=== PATIENT | male | born 1930 | race Caucasian/White ===

== ENCOUNTER 2018-06-11 20:21 | Inpatient (IN) ==
--- NOTE | 2018-06-11 20:48 | XR ---
EXAM DATE: 06/11/2018 8:44 PM EST AGE/SEX: 88 years / Male INDICATIONS: Chest pain CLINICAL DATA: This is the patient's initial encounter. Patient reports that signs and symptoms have been present for 1 day and indicates a pain score of 0/10. MEDICAL/SURGICAL HISTORY: Cardiovascular disease. CABG. COMPARISON: No prior exams available for comparison. FINDINGS: Postsurgical features of prior CABG. Mild patchy parenchymal opacities in the medial right lower lung zone. Cardiac silhouette is enlarged. Remainder of exam is unchanged. CONCLUSION: 1. Mild patchy parenchymal opacities in the medial right midlung zone. Cannot exclude developing air space disease in the appropriate clinical setting. 2. Cardiomegaly. Electronically signed by: Helio Amos MD 06/11/2018 8:46 PM EST
[2018-06-11 20:53] LABS: Baso % (Auto) 0.3 % (0.0-2.0); Eos # (Auto) 0.4 th/mm3 (0.0-0.4); Eos % (Auto) 5.3 % (0.0-4.0); Hematocrit 38.8 % (39.0-51.0); Hemoglobin 13.8 gm/dL (13.0-17.0); Lymph # (Auto) 1.5 th/mm3 (1.0-4.8); Lymph % (Auto) 18.6 % (9.0-44.0); Mean Corpuscular HGB Conc 35.7 % (32.0-36.0); Mean Corpuscular Hemoglobin 33.4 pg (27.0-34.0); Mean Corpuscular Volume 93.5 fL (80.0-100.0); Mean Platelet Volume 9.6 fL (7.0-11.0); Mono # (Auto) 0.6 th/mm3 (0.0-0.9); Mono % (Auto) 7.9 % (0.0-8.0); Neut # (Auto) 5.3 th/mm3 (1.8-7.7); Neut % (Auto) 67.9 % (16.0-70.0); Platelet Count 164 th/mm3 (150-450); Red Blood Count 4.15 mil/mm3 (4.50-5.90); Red Cell Distribution Width 13.3 % (11.6-17.2); White Blood Count 7.8 th/mm3 (4.0-11.0)
--- NOTE | 2018-06-11 21:17 | ED ---
HPI General Chief Complaint: Chest Pain Stated Complaint: Medical Time Seen by Provider: 06/11/18 20:33 Source: patient Mode of arrival: ambulatory Limitations: no limitations History of Present Illness HPI narrative: 88-year-old male came to the emergency room with history of on and off chest pain for past 3-4 weeks with exertion. Patient has also been having pedal edema progressively worsening for past few months. 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 He follows up with Dr. Montes De Oca. Patient had a Lexiscan done in July 2017. He is not sure about the result. He has been taking his medications like he is supposed to. Currently he is chest pain-free. He describes his pain more like a discomfort that is over his entire chest and radiates down both arms. No history of shortness of breath, cough or fever. Patient was hypertensive upon arrival. He agrees to being quite anxious when he arrived. He is here with his who is giving additional history and confirming. Related Data Home Medications Medication Instructions Recorded Confirmed cholecalciferol (vitamin D3) 2,000 unit PO DAILY 06/11/18 06/11/18 [Vitamin D3] Previous Rx's Medication Instructions Recorded aspirin [Aspir-81] 81 mg PO DAILY #30 tab 06/15/18 atorvastatin 40 mg PO DAILY #30 tab 06/15/18 clopidogrel [Plavix] 75 mg PO DAILY #30 tab 06/15/18 metoprolol tartrate 50 mg PO BID #60 tab 06/15/18 nifedipine 60 mg PO DAILY #30 tab 06/15/18 Allergies Allergy/AdvReac Type Severity Reaction Status Date / Time No Known Allergies Allergy Verified 06/11/18 20:23 Review of Systems ROS: all other systems reviewed are negative [facility] Medical History Medical History Chronic kidney disease (CKD) (Acute) Essential hypertension (Acute) Localized edema (Acute) Seborrheic keratosis (Acute) Social History Social History Substance History: No History of Abuse Second Hand Smoke Exposure: No Smoking Status: Never smoker How Often Do You Have a Drink Containing Alcohol: Never Recent Travel in [facility] within the Last 8 Weeks: No Recent Out of Country Travel within the Last 8 Weeks: No Immunization History Tetanus Immunization: <5 Years Exam Narrative Exam Narrative: GENERAL: Awake, alert, elderly, no obvious distress SKIN: Focused skin assessment warm/dry. HEAD: Atraumatic. Normocephalic. EYES: Pupils equal and round. No scleral icterus. No injection or drainage. ENT: No nasal bleeding or discharge. Mucous membranes pink and moist. NECK: Trachea midline. No JVD. CARDIOVASCULAR: Regular rate and rhythm. No murmur appreciated. RESPIRATORY: No accessory muscle use. Clear to auscultation. Breath sounds equal bilaterally. GASTROINTESTINAL: Abdomen soft, non-tender, nondistended. Hepatic and splenic margins not palpable. MUSCULOSKELETAL: No obvious deformities. No clubbing. No cyanosis. Pedal edema left worse than right NEUROLOGICAL: Awake and alert. No obvious cranial nerve deficits. Motor grossly within normal limits. Normal speech. PSYCHIATRIC: Appropriate mood and affect; insight and judgment normal. Course Initial Documented Vital Signs Temperature 98.8 F 06/11/18 20:23 Pulse Rate 63 06/11/18 20:23 Respiratory Rate 16 06/11/18 20:23 Blood Pressure 203/84 H 06/11/18 20:23 Pulse Oximetry 96 06/11/18 20:23 Last Documented Vital Signs Temperature 97.6 F 06/15/18 11:18 Pulse Rate 64 06/15/18 11:18 Respiratory Rate 17 06/15/18 11:18 Blood Pressure 161/74 H 06/15/18 11:18 Pulse Oximetry 98 06/15/18 11:18 Critical Care Time Critical Care Time: Yes Total Critical Care Time: 30 Attestation: Aggregate critical care time was 30 minutes. Time to perform other separately billable procedures was not included in the critical care time. My time did not include minutes spent treating any other patients simultaneously or on activities that did not directly contribute to the patient's treatment. The services I provided to this patient were to treat and/or prevent clinically significant deterioration that could result in: ACS, heparin drip I provided critical care services requiring my management, as noted below: Chart data review, documentation time, medication orders and management, vital sign assessments/reviewing monitor data, ordering and reviewing lab tests, ordering and interpreting/reviewing x-rays and diagnostic studies, care of the patient and discussion of the patient with the admitting physicians. Medical Decision Making MDM Narrative Medical decision making narrative: 10:49 PM chest x-ray suggestive of bilateral lower lobe densities which could be congestive heart failure. Patient was given 40 mg of IV Lasix. Blood test results are back and patient has renal insufficiency. Rest of the blood test results are within acceptable limits. Patient is admitted to the hospitalist for a cardiology consultation and probable catheterization for angina based on the history. I discussed the test results and the plan with the patient and his and they are acceptable to the admission. I will start him on a heparin drip without a bolus for ACS. Medical Screen Exam Complete: Yes Emergency Medical Condition: Yes Lab Data Result diagrams: 06/15/18 04:58 06/15/18 04:58 Lab Results 06/11/18 06/11/18 06/11/18 Range/Units 20:35 20:35 20:35 WBC 7.8 (4.0-11.0) th/mm3 RBC 4.15 L (4.50-5.90) mil/mm3 Hgb 13.8 (13.0-17.0) gm/dL Hct 38.8 L (39.0-51.0) % MCV 93.5 (80.0-100.0) fL MCH 33.4 (27.0-34.0) pg MCHC 35.7 (32.0-36.0) % RDW 13.3 (11.6-17.2) % Plt Count 164 (150-450) th/mm3 MPV 9.6 (7.0-11.0) fL Prelim Diff (Auto) Neut % (Auto) 67.9 (16.0-70.0) % Lymph % (Auto) 18.6 (9.0-44.0) % [place] % (Auto) 7.9 (0.0-8.0) % Eos % (Auto) 5.3 H (0.0-4.0) % Baso % (Auto) 0.3 (0.0-2.0) % Neut # (Auto) 5.3 (1.8-7.7) th/mm3 Lymph # (Auto) 1.5 (1.0-4.8) th/mm3 [place] # (Auto) 0.6 (0.0-0.9) th/mm3 Eos # (Auto) 0.4 (0.0-0.4) th/mm3 Baso # (Auto) 0.0 (0.0-0.2) th/mm3 WBC Differential . Diff Scan Differential Comment Auto diff final Platelet Estimate (Normal) Platelet Morphology (Normal) PT (9.8-11.6) sec INR Ratio APTT (23.4-31.7) sec Sodium 141 (136-145) meq/L Potassium 4.3 (3.5-5.1) meq/L Chloride 110 H (98-107) meq/L Carbon Dioxide 24.8 (21.0-32.0) meq/L Anion Gap 6 (5-15) meq/L BUN 34 H (7-18) mg/dL Creatinine 2.03 H (0.60-1.30) mg/dL Estimated GFR 31 L (>89) mL/min Random Glucose 133 H (74-106) mg/dL Calcium 9.4 (8.5-10.1) mg/dL Total Bilirubin 0.5 (0.2-1.0) mg/dL AST 29 (15-37) U/L ALT 20 (12-78) U/L Alkaline Phosphatase 71 (45-117) U/L Troponin I 0.03 (0.02-0.05) ng/mL B-Natriuretic Peptide 247 H (0-100) pg/mL Total Protein 7.8 (6.4-8.2) g/dL Albumin 3.9 (3.4-5.0) g/dL Urine Color (Yellw/Straw) Urine Clarity (Clear) Urine pH (5.0-8.5) Ur Specific [place] (1.002-1.035) Urine Protein (Neg-Trace) mg/dL Urine Glucose (UA) (Negative) mg/dL Urine Ketones (Negative) mg/dL Urine Occult Blood (Negative) Urine Nitrate (Negative) Urine Bilirubin (Negative) Urine Urobilinogen (Less than 2) mg/dL Ur Leukocyte Esterase (Negative) Urine RBC (0-3) /hpf Urine WBC (0-5) /hpf Urine Mucus (Occasional) /lpf Ur Microscopic Review 06/11/18 06/11/18 06/12/18 Range/Units 22:54 23:55 03:49 WBC 5.9 (4.0-11.0) th/mm3 RBC 3.93 L (4.50-5.90) mil/mm3 Hgb 13.2 (13.0-17.0) gm/dL Hct 36.5 L (39.0-51.0) % MCV 92.8 (80.0-100.0) fL MCH 33.6 (27.0-34.0) pg MCHC 36.3 H (32.0-36.0) % RDW 12.9 (11.6-17.2) % Plt Count 147 L (150-450) th/mm3 MPV 10.3 (7.0-11.0) fL Prelim Diff (Auto) Slide review pending Neut % (Auto) 62.6 (16.0-70.0) % Lymph % (Auto) 21.4 (9.0-44.0) % [place] % (Auto) 9.2 H (0.0-8.0) % Eos % (Auto) 6.3 H (0.0-4.0) % Baso % (Auto) 0.5 (0.0-2.0) % Neut # (Auto) 3.7 (1.8-7.7) th/mm3 Lymph # (Auto) 1.3 (1.0-4.8) th/mm3 [place] # (Auto) 0.5 (0.0-0.9) th/mm3 Eos # (Auto) 0.4 (0.0-0.4) th/mm3 Baso # (Auto) 0.0 (0.0-0.2) th/mm3 WBC Differential . Diff Scan Auto diff confirmed Differential Comment . Platelet Estimate Low L (Normal) Platelet Morphology Normal (Normal) PT 10.7 (9.8-11.6) sec INR 1.1 Ratio APTT 23.5 (23.4-31.7) sec Sodium (136-145) meq/L Potassium (3.5-5.1) meq/L Chloride (98-107) meq/L Carbon Dioxide (21.0-32.0) meq/L Anion Gap (5-15) meq/L BUN (7-18) mg/dL Creatinine (0.60-1.30) mg/dL Estimated GFR (>89) mL/min Random Glucose (74-106) mg/dL Calcium (8.5-10.1) mg/dL Total Bilirubin (0.2-1.0) mg/dL AST (15-37) U/L ALT (12-78) U/L Alkaline Phosphatase (45-117) U/L Troponin I 0.60 H (0.02-0.05) ng/mL B-Natriuretic Peptide (0-100) pg/mL Total Protein (6.4-8.2) g/dL Albumin (3.4-5.0) g/dL Urine Color (Yellw/Straw) Urine Clarity (Clear) Urine pH (5.0-8.5) Ur Specific [place] (1.002-1.035) Urine Protein (Neg-Trace) mg/dL Urine Glucose (UA) (Negative) mg/dL Urine Ketones (Negative) mg/dL Urine Occult Blood (Negative) Urine Nitrate (Negative) Urine Bilirubin (Negative) Urine Urobilinogen (Less than 2) mg/dL Ur Leukocyte Esterase (Negative) Urine RBC (0-3) /hpf Urine WBC (0-5) /hpf Urine Mucus (Occasional) /lpf Ur Microscopic Review 06/12/18 06/12/18 06/12/18 Range/Units 03:49 03:49 18:45 WBC (4.0-11.0) th/mm3 RBC (4.50-5.90) mil/mm3 Hgb (13.0-17.0) gm/dL Hct (39.0-51.0) % MCV (80.0-100.0) fL MCH (27.0-34.0) pg MCHC (32.0-36.0) % RDW (11.6-17.2) % Plt Count (150-450) th/mm3 MPV (7.0-11.0) fL Prelim Diff (Auto) Neut % (Auto) (16.0-70.0) % Lymph % (Auto) (9.0-44.0) % [place] % (Auto) (0.0-8.0) % Eos % (Auto) (0.0-4.0) % Baso % (Auto) (0.0-2.0) % Neut # (Auto) (1.8-7.7) th/mm3 Lymph # (Auto) (1.0-4.8) th/mm3 [place] # (Auto) (0.0-0.9) th/mm3 Eos # (Auto) (0.0-0.4) th/mm3 Baso # (Auto) (0.0-0.2) th/mm3 WBC Differential Diff Scan Differential Comment Platelet Estimate (Normal) Platelet Morphology (Normal) PT (9.8-11.6) sec INR Ratio APTT 26.4 (23.4-31.7) sec Sodium 144 (136-145) meq/L Potassium 3.4 L D (3.5-5.1) meq/L Chloride 108 H (98-107) meq/L Carbon Dioxide 29.6 (21.0-32.0) meq/L Anion Gap 6 (5-15) meq/L BUN 35 H (7-18) mg/dL Creatinine 1.97 H (0.60-1.30) mg/dL Estimated GFR 32 L (>89) mL/min Random Glucose 98 (74-106) mg/dL Calcium 9.3 (8.5-10.1) mg/dL Total Bilirubin 0.4 (0.2-1.0) mg/dL AST 24 (15-37) U/L ALT 18 (12-78) U/L Alkaline Phosphatase 64 (45-117) U/L Troponin I 1.07 H* (0.02-0.05) ng/mL B-Natriuretic Peptide (0-100) pg/mL Total Protein 7.2 D (6.4-8.2) g/dL Albumin 3.6 (3.4-5.0) g/dL Urine Color Straw (Yellw/Straw) Urine Clarity Clear (Clear) Urine pH 7.0 (5.0-8.5) Ur Specific [place] 1.016 (1.002-1.035) Urine Protein Negative (Neg-Trace) mg/dL Urine Glucose (UA) Negative (Negative) mg/dL Urine Ketones Negative (Negative) mg/dL Urine Occult Blood Small H (Negative) Urine Nitrate Negative (Negative) Urine Bilirubin Negative (Negative) Urine Urobilinogen Less than 2 (Less than 2) mg/dL Ur Leukocyte Esterase Negative (Negative) Urine RBC Less than 1 (0-3) /hpf Urine WBC Less than 1 (0-5) /hpf Urine Mucus Few H (Occasional) /lpf Ur Microscopic Review Not Reportable 06/12/18 06/13/18 06/13/18 Range/Units 21:45 03:57 03:57 WBC 6.9 (4.0-11.0) th/mm3 RBC 3.98 L (4.50-5.90) mil/mm3 Hgb 13.3 (13.0-17.0) gm/dL Hct 37.8 L (39.0-51.0) % MCV 94.9 (80.0-100.0) fL MCH 33.4 (27.0-34.0) pg MCHC 35.2 (32.0-36.0) % RDW 13.0 (11.6-17.2) % Plt Count 139 L (150-450) th/mm3 MPV 9.9 (7.0-11.0) fL Prelim Diff (Auto) Neut % (Auto) 57.9 (16.0-70.0) % Lymph % (Auto) 26.8 (9.0-44.0) % [place] % (Auto) 8.8 H (0.0-8.0) % Eos % (Auto) 6.1 H (0.0-4.0) % Baso % (Auto) 0.4 (0.0-2.0) % Neut # (Auto) 4.0 (1.8-7.7) th/mm3 Lymph # (Auto) 1.8 (1.0-4.8) th/mm3 [place] # (Auto) 0.6 (0.0-0.9) th/mm3 Eos # (Auto) 0.4 (0.0-0.4) th/mm3 Baso # (Auto) 0.0 (0.0-0.2) th/mm3 WBC Differential . Diff Scan Differential Comment Auto diff final Platelet Estimate (Normal) Platelet Morphology (Normal) PT 11.4 (9.8-11.6) sec INR 1.1 Ratio APTT 27.1 (23.4-31.7) sec Sodium 142 (136-145) meq/L Potassium 3.4 L (3.5-5.1) meq/L Chloride 107 (98-107) meq/L Carbon Dioxide 26.4 (21.0-32.0) meq/L Anion Gap 9 (5-15) meq/L BUN 34 H (7-18) mg/dL Creatinine 2.08 H (0.60-1.30) mg/dL Estimated GFR 30 L (>89) mL/min Random Glucose 90 (74-106) mg/dL Calcium 8.5 D (8.5-10.1) mg/dL Total Bilirubin (0.2-1.0) mg/dL AST (15-37) U/L ALT (12-78) U/L Alkaline Phosphatase (45-117) U/L Troponin I (0.02-0.05) ng/mL B-Natriuretic Peptide (0-100) pg/mL Total Protein (6.4-8.2) g/dL Albumin (3.4-5.0) g/dL Urine Color (Yellw/Straw) Urine Clarity (Clear) Urine pH (5.0-8.5) Ur Specific [place] (1.002-1.035) Urine Protein (Neg-Trace) mg/dL Urine Glucose (UA) (Negative) mg/dL Urine Ketones (Negative) mg/dL Urine Occult Blood (Negative) Urine Nitrate (Negative) Urine Bilirubin (Negative) Urine Urobilinogen (Less than 2) mg/dL Ur Leukocyte Esterase (Negative) Urine RBC (0-3) /hpf Urine WBC (0-5) /hpf Urine Mucus (Occasional) /lpf Ur Microscopic Review 06/13/18 06/13/18 06/14/18 Range/Units 03:57 09:40 01:39 WBC 6.2 (4.0-11.0) th/mm3 RBC 3.95 L (4.50-5.90) mil/mm3 Hgb 13.0 (13.0-17.0) gm/dL Hct 37.3 L (39.0-51.0) % MCV 94.3 (80.0-100.0) fL MCH 32.9 (27.0-34.0) pg MCHC 34.9 (32.0-36.0) % RDW 13.2 (11.6-17.2) % Plt Count 144 L (150-450) th/mm3 MPV 9.9 (7.0-11.0) fL Prelim Diff (Auto) Neut % (Auto) (16.0-70.0) % Lymph % (Auto) (9.0-44.0) % [place] % (Auto) (0.0-8.0) % Eos % (Auto) (0.0-4.0) % Baso % (Auto) (0.0-2.0) % Neut # (Auto) (1.8-7.7) th/mm3 Lymph # (Auto) (1.0-4.8) th/mm3 [place] # (Auto) (0.0-0.9) th/mm3 Eos # (Auto) (0.0-0.4) th/mm3 Baso # (Auto) (0.0-0.2) th/mm3 WBC Differential Diff Scan Differential Comment Platelet Estimate (Normal) Platelet Morphology (Normal) PT (9.8-11.6) sec INR Ratio APTT 44.3 H D 29.0 D (23.4-31.7) sec Sodium (136-145) meq/L Potassium (3.5-5.1) meq/L Chloride (98-107) meq/L Carbon Dioxide (21.0-32.0) meq/L Anion Gap (5-15) meq/L BUN (7-18) mg/dL Creatinine (0.60-1.30) mg/dL Estimated GFR (>89) mL/min Random Glucose (74-106) mg/dL Calcium (8.5-10.1) mg/dL Total Bilirubin (0.2-1.0) mg/dL AST (15-37) U/L ALT (12-78) U/L Alkaline Phosphatase (45-117) U/L Troponin I (0.02-0.05) ng/mL B-Natriuretic Peptide (0-100) pg/mL Total Protein (6.4-8.2) g/dL Albumin (3.4-5.0) g/dL Urine Color (Yellw/Straw) Urine Clarity (Clear) Urine pH (5.0-8.5) Ur Specific [place] (1.002-1.035) Urine Protein (Neg-Trace) mg/dL Urine Glucose (UA) (Negative) mg/dL Urine Ketones (Negative) mg/dL Urine Occult Blood (Negative) Urine Nitrate (Negative) Urine Bilirubin (Negative) Urine Urobilinogen (Less than 2) mg/dL Ur Leukocyte Esterase (Negative) Urine RBC (0-3) /hpf Urine WBC (0-5) /hpf Urine Mucus (Occasional) /lpf Ur Microscopic Review 06/14/18 06/14/18 06/14/18 Range/Units 01:39 01:39 08:31 WBC (4.0-11.0) th/mm3 RBC (4.50-5.90) mil/mm3 Hgb (13.0-17.0) gm/dL Hct (39.0-51.0) % MCV (80.0-100.0) fL MCH (27.0-34.0) pg MCHC (32.0-36.0) % RDW (11.6-17.2) % Plt Count (150-450) th/mm3 MPV (7.0-11.0) fL Prelim Diff (Auto) Neut % (Auto) (16.0-70.0) % Lymph % (Auto) (9.0-44.0) % [place] % (Auto) (0.0-8.0) % Eos % (Auto) (0.0-4.0) % Baso % (Auto) (0.0-2.0) % Neut # (Auto) (1.8-7.7) th/mm3 Lymph # (Auto) (1.0-4.8) th/mm3 [place] # (Auto) (0.0-0.9) th/mm3 Eos # (Auto) (0.0-0.4) th/mm3 Baso # (Auto) (0.0-0.2) th/mm3 WBC Differential Diff Scan Differential Comment Platelet Estimate (Normal) Platelet Morphology (Normal) PT (9.8-11.6) sec INR Ratio APTT 51.7 H D 58.9 H (23.4-31.7) sec Sodium 142 (136-145) meq/L Potassium 3.5 (3.5-5.1) meq/L Chloride 108 H (98-107) meq/L Carbon Dioxide 26.6 (21.0-32.0) meq/L Anion Gap 7 (5-15) meq/L BUN 36 H (7-18) mg/dL Creatinine 1.99 H (0.60-1.30) mg/dL Estimated GFR 32 L (>89) mL/min Random Glucose 104 (74-106) mg/dL Calcium 8.2 L (8.5-10.1) mg/dL Total Bilirubin (0.2-1.0) mg/dL AST (15-37) U/L ALT (12-78) U/L Alkaline Phosphatase (45-117) U/L Troponin I (0.02-0.05) ng/mL B-Natriuretic Peptide (0-100) pg/mL Total Protein (6.4-8.2) g/dL Albumin (3.4-5.0) g/dL Urine Color ([place]ell[place]/Straw) Urine Clarity (Clear) Urine pH (5.0-8.5) Ur Specific [place] (1.002-1.035) Urine Protein (Neg-Trace) mg/dL Urine Glucose (UA) (Negative) mg/dL Urine Ketones (Negative) mg/dL Urine Occult Blood (Negative) Urine Nitrate (Negative) Urine Bilirubin (Negative) Urine Urobilinogen (Less than 2) mg/dL Ur Leukocyte Esterase (Negative) Urine RBC (0-3) /hpf Urine WBC (0-5) /hpf Urine Mucus (Occasional) /lpf Ur Microscopic Review 06/15/18 06/15/18 Range/Units 04:58 04:58 WBC 5.6 (4.0-11.0) th/mm3 RBC 3.94 L (4.50-5.90) mil/mm3 Hgb 12.9 L (13.0-17.0) gm/dL Hct 37.4 L (39.0-51.0) % MCV 95.0 (80.0-100.0) fL MCH 32.8 (27.0-34.0) pg MCHC 34.6 (32.0-36.0) % RDW 13.0 (11.6-17.2) % Plt Count 142 L (150-450) th/mm3 MPV 9.4 (7.0-11.0) fL Prelim Diff (Auto) Neut % (Auto) (16.0-70.0) % Lymph % (Auto) (9.0-44.0) % [place] % (Auto) (0.0-8.0) % Eos % (Auto) (0.0-4.0) % Baso % (Auto) (0.0-2.0) % Neut # (Auto) (1.8-7.7) th/mm3 Lymph # (Auto) (1.0-4.8) th/mm3 [place] # (Auto) (0.0-0.9) th/mm3 Eos # (Auto) (0.0-0.4) th/mm3 Baso # (Auto) (0.0-0.2) th/mm3 WBC Differential Diff Scan Differential Comment Platelet Estimate (Normal) Platelet Morphology (Normal) PT (9.8-11.6) sec INR Ratio APTT (23.4-31.7) sec Sodium 144 (136-145) meq/L Potassium 3.6 (3.5-5.1) meq/L Chloride 111 H (98-107) meq/L Carbon Dioxide 22.5 (21.0-32.0) meq/L Anion Gap 11 (5-15) meq/L BUN 32 H (7-18) mg/dL Creatinine 1.90 H (0.60-1.30) mg/dL Estimated GFR 34 L (>89) mL/min Random Glucose 88 (74-106) mg/dL Calcium 8.3 L (8.5-10.1) mg/dL Total Bilirubin (0.2-1.0) mg/dL AST (15-37) U/L ALT (12-78) U/L Alkaline Phosphatase (45-117) U/L Troponin I (0.02-0.05) ng/mL B-Natriuretic Peptide (0-100) pg/mL Total Protein (6.4-8.2) g/dL Albumin (3.4-5.0) g/dL Urine Color ([place]/Straw) Urine Clarity (Clear) Urine pH (5.0-8.5) Ur Specific [place] (1.002-1.035) Urine Protein (Neg-Trace) mg/dL Urine Glucose (UA) (Negative) mg/dL Urine Ketones (Negative) mg/dL Urine Occult Blood (Negative) Urine Nitrate (Negative) Urine Bilirubin (Negative) Urine Urobilinogen (Less than 2) mg/dL Ur Leukocyte Esterase (Negative) Urine RBC (0-3) /hpf Urine WBC (0-5) /hpf Urine Mucus (Occasional) /lpf Ur Microscopic Review Imaging Data Radiologist's impression: Chest X-Ray 06/11/18 20:33 CONCLUSION: 1. Mild patchy parenchymal opacities in the medial right midlung zone. Cannot exclude developing airspace disease in the appropriate clinical setting. 2. Cardiomegaly. Abdomen/Bladder Ultrasound 06/12/18 00:00 CONCLUSION: 1. Bilateral renal cysts. 2. Irregular wall thickening within the urinary bladder. Cystitis and neoplastic process should be excluded. ECG Data Attestation: I personally reviewed and interpreted this ECG as follows: Interpretation: Twelve-lead EKG was reviewed by me. Normal sinus him, PACs, left axis deviation, nonspecific ST-T wave changes. Heart rate of 60 bpm. Discharge Plan Discharge Disposition Patient Disposition: 30 Still Patient Discharge Condition Condition: Good Discharge Order Discharge Orders: Discharge Order (Routine); Ordered 06/15/18 Ordered By: Jamal Mosquera ED Use Only Admit Order (Routine); Ordered 06/11/18 Ordered By: Yolanda Fuchs Discharge Details Anticipated Discharge Date: 06/15/18 Discharge Comment: dc to home today Physicians Team ED Provider: Yolanda Fuchs Primary Care Provider: Edis Dial Attending Provider: Jamal Mosquera Other Providers: Rad Persaud Abdul Q Status ED Status: Left Department Discharge Information Discharge Date/Time: 06/12/18 00:57
[2018-06-11 21:34] LABS: Alanine Aminotransferase 20 U/L (12-78); Albumin 3.9 g/dL (3.4-5.0); Anion Gap 6 meq/L (5-15); Aspartate Aminotransferase 29 U/L (15-37); Blood Urea Nitrogen 34 mg/dL (7-18); Calcium 9.4 mg/dL (8.5-10.1); Carbon Dioxide 24.8 meq/L (21.0-32.0); Chloride 110 meq/L (98-107); Glomerular Filtration Rate 31 mL/min (>89); Glucose,Random 133 mg/dL (74-106); Potassium 4.3 meq/L (3.5-5.1); Sodium 141 meq/L (136-145)
[2018-06-11 21:37] LABS: Alkaline Phosphatase 71 U/L (45-117); Total Protein 7.8 g/dL (6.4-8.2); Troponin I 0.03 ng/mL (0.02-0.05)
[2018-06-11] MEDS ORDERED: Acetaminophen 325 MG Tablet PO PRN (22:26)
[2018-06-11] MEDS ORDERED: Bisacodyl 10 MG Supp RECTAL PRN (22:26)
[2018-06-11] MEDS ORDERED: Morphine Inj 4 MG/ML Vial IV.PUSH PRN (22:28)
--- NOTE | 2018-06-11 22:36 | P.HPIM ---
History of Present Illness Primary Care Physician: Edis Dial DO History of Present Illness: This is an 88-year-old male with a PMH of CAD s/p CABG 25yrs ago, HTN and CKD who presented to the ER for c/o chest pain and bilateral lower extremity edema x3 wks. Notes chest pain is substernal, moderate, 6/10, worse w/ exertion/ ambulation, symptoms have gotten progressively worse over the last 1wk. Now w/ bilateral lower extremity edema. Follows w/ Dr. Montes De Oca as outpatient, no recent changes to medications. Also notes h/o CKD, baseline creatinine unknown but reports being told it is elevated, has upcoming appt w/ Archery Instructor on . On arrival, BP 189/78, HR 59, O2 sat 98% on RA, Afebrile. CBC unremarkable. INR 1.1. Creatinine 2.03, no previous labs for comparison. BNP 247. Troponin 0 0.03 per CXR with patchy parenchymal opacities medial right midlung zone, possible airspace disease, cardiomegaly. S/p Lasix in ER. Currently chest pain free. Dr. Persaud consulted, plan for cath in am. Currently on Heparin gtt. - Diagnosis (1) ACS (acute coronary syndrome) (2) Renal insufficiency (3) Lower extremity edema Review of Systems PAST FAMILY HISTORY: Reviewed. Strong family history of CAD. All other systems reviewed negative except as stated in HPI [facility] - History History Provided By: Patient, Family Member - Medical History Medical History: Medical History (Last Reviewed 06/11/18 @ 22:48 by Yolanda Fuchs MD) Chronic kidney disease (CKD) Essential hypertension Localized edema Seborrheic keratosis - Tobacco History Second Hand Smoke Exposure: No Tobacco Use In Past 30 Days: No Smoking Status: Never smoker - Alcohol History How Often Do You Have a Drink Containing Alcohol: Never - Substance Use History Substance History: No History of Abuse - Travel History Recent Travel in the [place] Within the Last 8 Weeks: No Recent Travel Out of the Country Within the Last 8 Weeks: No - Immunization History Tetanus Immunization: <5 Years Medications and Allergies Active Medications: Active Medications Acetaminophen (Tylenol) 650 mg PO Q4H PRN PRN Reason: Temp > 100.4 Al Hydroxide/Mg Hydroxide (Milk Of Magnesia Liq) 30 ml PO Q12H PRN PRN Reason: Mild Constipation Aspirin (Ecotrin) 81 mg PO DAILY [facility] Atorvastatin Calcium (Lipitor) 10 mg PO DAILY [facility] Bisacodyl (Dulcolax Supp) 10 mg RECTAL DAILY PRN PRN Reason: SEVERE CONSITIPATION Lactulose (Lactulose Liq) 30 ml PO DAILY PRN PRN Reason: SEVERE CONSITIPATION Metoprolol Tartrate (Lopressor) 50 mg PO BID [facility] Morphine Sulfate (Morphine Inj) 2 mg IV.PUSH Q4H PRN PRN Reason: PAIN 6-10 Nitroglycerin (Nitro-Bid 2% Oint) 0.5 inch TOPICAL Q6HR PRN PRN Reason: CHEST PAIN Ondansetron HCl (Zofran Inj) 4 mg IV.PUSH Q6H PRN PRN Reason: NAUSEA OR VOMITING Senna/Docusate Sodium (Cornelia-Colace) 1 tab PO BID [facility] Sennosides (Senokot) 17.2 mg PO Q12H PRN PRN Reason: Moderate Constipation Sodium Chloride (Ns Flush) 2 ml IV.FLUSH UNSCH PRN PRN Reason: FLUSH AFTER USING IV ACCESS Sodium Chloride (Ns Flush) 2 ml IV.FLUSH BID [facility] Sodium Chloride (Ns Flush) 2 ml IV.FLUSH PRN PRN PRN Reason: FLUSH AFTER USING IV ACCESS Allergies Allergy/AdvReac Type Severity Reaction Status Date / Time No Known Allergies Allergy Verified 06/11/18 20:23 Home Medications Medication Instructions Recorded Confirmed Type amlodipine 5 mg PO DAILY 06/11/18 06/11/18 History aspirin [Aspir-81] 81 mg PO DAILY 06/11/18 06/11/18 History atorvastatin 10 mg PO DAILY 06/11/18 06/11/18 History cholecalciferol (vitamin D3) 2,000 unit PO DAILY 06/11/18 06/11/18 History [Vitamin D3] losartan 100 mg PO DAILY 06/11/18 06/11/18 History metoprolol tartrate 50 mg PO BID 06/11/18 06/11/18 History Exam Vital signs: Vital Signs 06/11/18 20:23 06/11/18 20:52 06/11/18 20:57 Temperature 98.8 F Pulse Rate 63 52 L Respiratory Rate 16 Blood Pressure 203/84 H 189/78 H Pulse Oximetry 96 98 06/11/18 22:30 06/11/18 22:31 Temperature Pulse Rate 59 L 57 L Respiratory Rate 18 Blood Pressure 160/70 H Pulse Oximetry 97 Intake & Output 06/11/18 06/11/18 06/12/18 06:59 18:59 06:59 Output Total 300 / 300 Balance -300 / -300 Weight 55.792 kg Output: Urine 300 / 300 Narrative: PE: GENERAL: Extremely pleasant elderly male in no acute distress. at bedside. SKIN: Focused skin assessment warm and dry. HEENT: PERRLA, EOMI. No scleral icterus or conjunctival pallor. No lid lag or facial droop. CARDIOVASCULAR: Regular rate and rhythm. No obvious murmurs to auscultation. No chest tenderness to palpation. RESPIRATORY: No obvious rhonchi or wheezing. Clear to auscultation. Breath sounds equal bilaterally. GASTROINTESTINAL: Abdomen soft, non-tender, nondistended. BS normal. MUSCULOSKELETAL: Extremities without clubbing, cyanosis, 2+ edema bilaterally. No obvious deformities. NEUROLOGICAL: Awake, alert and oriented x4. No focal neurologic deficits. Moving both upper and lower extremities spontaneously. PSYCHIATRIC: Appropriate mood and affect. Insight and judgment normal. Results - Labs CBC & Chem 7: 06/11/18 20:35 06/11/18 20:35 Labs: Short CBC 06/11/18 Range/Units 20:35 WBC 7.8 (4.0-11.0) th/mm3 Hgb 13.8 (13.0-17.0) gm/dL Hct 38.8 L (39.0-51.0) % Plt Count 164 (150-450) th/mm3 [facility] 06/11/18 20:35 Sodium 141 Potassium 4.3 Chloride 110 H Carbon Dioxide 24.8 BUN 34 H Creatinine 2.03 H Calcium 9.4 Cardiac Enzymes 06/11/18 Range/Units 20:35 Troponin I 0.03 (0.02-0.05) ng/mL Liver Function 06/11/18 Range/Units 20:35 Total Bilirubin 0.5 (0.2-1.0) mg/dL AST 29 (15-37) U/L ALT 20 (12-78) U/L Alkaline Phosphatase 71 (45-117) U/L Albumin 3.9 (3.4-5.0) g/dL - Imaging Impressions Chest X-Ray 06/11/18 20:33 CONCLUSION: 1. Mild patchy parenchymal opacities in the medial right midlung zone. Cannot exclude developing airspace disease in the appropriate clinical setting. 2. Cardiomegaly. Caprini VTE Risk Assessment Caprini VTE Risk Assessment: Moderate/High Risk (score >= 2) Caprini Risk Assessment Model: Point Value = 1 Point Value = 2 Point Value = 3 Point Value = 5 Age 41-60 Minor surgery BMI > 25 kg/m2 Swollen legs Varicose veins or History of unexplained or recurrent spontaneous Oral contraceptives or hormone replacement Sepsis (< 1 month) Serious lung disease, including pneumonia (< 1 month) Abnormal pulmonary function Acute myocardial infarction Congestive heart failure (< 1 month) History of inflammatory bowel disease Medical patient at bed rest Age 61-74 Arthroscopic surgery Major open surgery (> 45 min) Laparoscopic surgery (> 45 min) Malignancy Confined to bed (> 72 hours) Immobilizing plaster cast Central venous access Age >= 75 History of VTE Family history of VTE Factor V Leiden Prothrombin [id number] Lupus anticoagulant Anticardiolipin antibodies Elevated serum homocysteine Heparin-induced thrombocytopenia Other congenital or acquired thrombophilia Stroke (< 1 month) Elective arthroplasty Hip, pelvis, or leg fracture Acute spinal cord injury (< 1 month) Prophylaxis Regimen: Total Risk Factor Score Risk Level Prophylaxis Regimen 0-1 Low Early ambulation 2 Moderate Order ONE of the following: *Sequential Compression Device (SCD) *Heparin 5000 units SQ BID 3-4 Higher Order ONE of the following medications: *Heparin 5000 units SQ TID *Enoxaparin/Lovenox 40 mg SQ daily (WT < 150 kg, CrCl > 30 mL/min) *Enoxaparin/Lovenox 30 mg SQ daily (WT < 150 kg, CrCl > 10-29 mL/min) *Enoxaparin/Lovenox 30 mg SQ BID (WT < 150 kg, CrCl > 30 mL/min) AND/OR *Sequential Compression Device (SCD) 5 or more Highest Order ONE of the following medications: *Heparin 5000 units SQ TID (Preferred with Epidurals) *Enoxaparin/Lovenox 40 mg SQ daily (WT < 150 kg, CrCl > 30 mL/min) *Enoxaparin/Lovenox 30 mg SQ daily (WT < 150 kg, CrCl > 10-29 mL/min) *Enoxaparin/Lovenox 30 mg SQ BID (WT < 150 kg, CrCl > 30 mL/min) AND *Sequential Compression Device (SCD) Assessment and Plan - Assessment (1) ACS (acute coronary syndrome) Code(s): I24.9 - Acute ischemic heart disease, unspecified Status: Acute (2) Renal insufficiency Code(s): N28.9 - Disorder of kidney and ureter, unspecified Status: Acute (3) Lower extremity edema Code(s): R60.0 - Localized edema Status: Acute - Plan A/P: 1. ACS: h/o CAD s/p CABG 25yrs ago, c/o chest pain w/ exertion x3 wks, progressively worse, concern for ACS. Initial trop 0.03, no acute EKG changes, will check serial cardiac enzymes for trend. Continue Heparin gtt. Follows w/ Dr. Montes De Oca as outpatient, Dr. Persaud consulted, plan is for Cath in am, NPO , Morphine/NTG. ASA, Statin, resume home Metoprolol. 2. Renal Insufficiency: Creatinine 2.03, no previous labs for comparison, however pt reports being told creatinine elevated in the past, has upcoming appt w/ Archery Instructor 07/05/18, cannot recall name, will consult Nephrology for further eval in light of upcoming Cath w/ need for contrast. 3. Lower Extremity Edema: 2+ bilaterally, BNP 247, CXR w/ cardiomegaly but no significant effusion, s/p Lasix in ER, will check Echo to eval for possible cardiomyopathy, monitor I/O, caution w/ diuresis in light of renal insufficiency. 4. DVT Prophylaxis: Heparin gtt 5. Social work for d/c planning as needed. 6. Case discussed w/ ER physician at length, labs/records/imaging reviewed by me
[2018-06-11] MEDS ORDERED: Heparin Drip 25,000 UNIT/250 ML BAG IV.CONT PRN (22:42)
[2018-06-11 23:29] LABS: Activated Partial Thrombo Time 23.5 sec (23.4-31.7); INR 1.1 Ratio; Prothrombin Time 10.7 sec (9.8-11.6)
[2018-06-12 05:07] LABS: Baso % (Auto) 0.5 % (0.0-2.0); Eos # (Auto) 0.4 th/mm3 (0.0-0.4); Eos % (Auto) 6.3 % (0.0-4.0); Hematocrit 36.5 % (39.0-51.0); Hemoglobin 13.2 gm/dL (13.0-17.0); Lymph # (Auto) 1.3 th/mm3 (1.0-4.8); Lymph % (Auto) 21.4 % (9.0-44.0); Mean Corpuscular Hemoglobin 33.6 pg (27.0-34.0); Mean Corpuscular Volume 92.8 fL (80.0-100.0); Mean Platelet Volume 10.3 fL (7.0-11.0); Mono # (Auto) 0.5 th/mm3 (0.0-0.9); Mono % (Auto) 9.2 % (0.0-8.0); Neut # (Auto) 3.7 th/mm3 (1.8-7.7); Neut % (Auto) 62.6 % (16.0-70.0); Platelet Count 147 th/mm3 (150-450); Red Blood Count 3.93 mil/mm3 (4.50-5.90); Red Cell Distribution Width 12.9 % (11.6-17.2); White Blood Count 5.9 th/mm3 (4.0-11.0)
[2018-06-12 05:11] LABS: Mean Corpuscular HGB Conc 36.3 % (32.0-36.0)
[2018-06-12 05:40] LABS: Alanine Aminotransferase 18 U/L (12-78); Albumin 3.6 g/dL (3.4-5.0); Alkaline Phosphatase 64 U/L (45-117); Anion Gap 6 meq/L (5-15); Aspartate Aminotransferase 24 U/L (15-37); Blood Urea Nitrogen 35 mg/dL (7-18); Calcium 9.3 mg/dL (8.5-10.1); Carbon Dioxide 29.6 meq/L (21.0-32.0); Chloride 108 meq/L (98-107); Glomerular Filtration Rate 32 mL/min (>89); Glucose,Random 98 mg/dL (74-106); Potassium 3.4 meq/L (3.5-5.1); Sodium 144 meq/L (136-145); Total Protein 7.2 g/dL (6.4-8.2)
[2018-06-12 06:10] LABS: Troponin I 1.07 ng/mL (0.02-0.05)
[2018-06-12 06:57] LABS: Platelet Morphology Normal (Normal)
[2018-06-12] MEDS: Senna/Docusate Sodium 8.6/50 MG Tablet PO SCH ×2 (09:15→22:05)
[2018-06-12] MEDS: Metoprolol Tartrate 50 MG Tablet PO SCH ×2 (09:16→22:05)
[2018-06-12] MEDS ORDERED: Heparin/NS PF Inj 1,500 ML ONE (10:25)
[2018-06-12] MEDS ORDERED: Heparin 10,000 UNITS/10 ML Vial (for IV use) ONE (10:26)
[2018-06-12] MEDS ORDERED: fentaNYL Citrate Inj 100 MCG/2 ML Ampul ONE (10:26)
[2018-06-12] MEDS ORDERED: Sod Chloride 0.9% Inj 1,000 ML IV.CONT SCH (10:30)
[2018-06-12] MEDS ORDERED: Lidocaine PF 1% Inj 30 ML Vial ONE (10:38)
--- NOTE | 2018-06-12 11:01 | P.PN ---
Subjective Interval history: Follow-up for non-STEMI. Patient is currently doing well. He denies any chest pain, shortness of breath, fever or chills. Physical Exam Vital signs: Vital Signs 06/11/18 20:23 06/11/18 20:52 06/11/18 20:57 Temperature 98.8 F Pulse Rate 63 52 L Respiratory Rate 16 Blood Pressure 203/84 H 189/78 H Pulse Oximetry 96 98 06/11/18 22:30 06/11/18 22:31 06/11/18 23:27 Temperature Pulse Rate 59 L 57 L 61 Respiratory Rate 18 16 Blood Pressure 160/70 H 183/81 H Pulse Oximetry 97 06/12/18 00:36 06/12/18 00:55 06/12/18 01:15 Temperature 98.5 F Pulse Rate 60 60 50 L Respiratory Rate 18 Blood Pressure 159/72 H Pulse Oximetry 97 06/12/18 03:00 06/12/18 07:00 06/12/18 09:17 Temperature 98.3 F 98.4 F Pulse Rate 59 L 79 Respiratory Rate 16 18 Blood Pressure 167/75 H 188/76 H Pulse Oximetry 98 95 98 Intake & Output 06/11/18 06/12/18 06/12/18 18:59 06:59 18:59 Output Total 300 / 300 Balance -300 / -300 Weight 53.5 kg Output: Urine 300 / 300 Other: # Voids 2 Narrative: GENERAL: Alert, oriented x3, NAD. SKIN: Warm and dry. HEAD: Normocephalic. EYES: No scleral icterus. No injection or drainage. NECK: Supple, trachea midline. No JVD or lymphadenopathy. CARDIOVASCULAR: Regular rate and rhythm without murmurs, gallops, or rubs. RESPIRATORY: Breath sounds equal bilaterally. No accessory muscle use. GASTROINTESTINAL: Abdomen soft, non-tender, nondistended. MUSCULOSKELETAL: No cyanosis. Lower extremity edema 1+. BACK: Nontender without obvious deformity. No CVA tenderness. Results - Labs CBC & Chem 7: 06/12/18 03:49 06/12/18 03:49 Laboratory Results - last 24 hr 06/11/18 06/11/18 06/11/18 20:35 20:35 20:35 WBC 7.8 RBC 4.15 L Hgb 13.8 Hct 38.8 L MCV 93.5 MCH 33.4 MCHC 35.7 RDW 13.3 Plt Count 164 MPV 9.6 Prelim Diff (Auto) Neut % (Auto) 67.9 Lymph % (Auto) 18.6 [place] % (Auto) 7.9 Eos % (Auto) 5.3 H Baso % (Auto) 0.3 Neut # (Auto) 5.3 Lymph # (Auto) 1.5 [place] # (Auto) 0.6 Eos # (Auto) 0.4 Baso # (Auto) 0.0 WBC Differential . Diff Scan Differential Comment Auto diff final Platelet Estimate Platelet Morphology PT INR APTT Sodium 141 Potassium 4.3 Chloride 110 H Carbon Dioxide 24.8 Anion Gap 6 BUN 34 H Creatinine 2.03 H Estimated GFR 31 L Random Glucose 133 H Calcium 9.4 Total Bilirubin 0.5 AST 29 ALT 20 Alkaline Phosphatase 71 Troponin I 0.03 B-Natriuretic Peptide 247 H Total Protein 7.8 Albumin 3.9 06/11/18 06/11/18 06/12/18 22:54 23:55 03:49 WBC 5.9 RBC 3.93 L Hgb 13.2 Hct 36.5 L MCV 92.8 MCH 33.6 MCHC 36.3 H RDW 12.9 Plt Count 147 L MPV 10.3 Prelim Diff (Auto) Slide review pending Neut % (Auto) 62.6 Lymph % (Auto) 21.4 [place] % (Auto) 9.2 H Eos % (Auto) 6.3 H Baso % (Auto) 0.5 Neut # (Auto) 3.7 Lymph # (Auto) 1.3 [place] # (Auto) 0.5 Eos # (Auto) 0.4 Baso # (Auto) 0.0 WBC Differential . Diff Scan Auto diff confirmed Differential Comment . Platelet Estimate Low L Platelet Morphology Normal PT 10.7 INR 1.1 APTT 23.5 Sodium Potassium Chloride Carbon Dioxide Anion Gap BUN Creatinine Estimated GFR Random Glucose Calcium Total Bilirubin AST ALT Alkaline Phosphatase Troponin I 0.60 H B-Natriuretic Peptide Total Protein Albumin 06/12/18 06/12/18 03:49 03:49 WBC RBC Hgb Hct MCV MCH MCHC RDW Plt Count MPV Prelim Diff (Auto) Neut % (Auto) Lymph % (Auto) [place] % (Auto) Eos % (Auto) Baso % (Auto) Neut # (Auto) Lymph # (Auto) [place] # (Auto) Eos # (Auto) Baso # (Auto) WBC Differential Diff Scan Differential Comment Platelet Estimate Platelet Morphology PT INR APTT 26.4 Sodium 144 Potassium 3.4 L D Chloride 108 H Carbon Dioxide 29.6 Anion Gap 6 BUN 35 H Creatinine 1.97 H Estimated GFR 32 L Random Glucose 98 Calcium 9.3 Total Bilirubin 0.4 AST 24 ALT 18 Alkaline Phosphatase 64 Troponin I 1.07 H* B-Natriuretic Peptide Total Protein 7.2 D Albumin 3.6 - Imaging Impressions Chest X-Ray 06/11/18 20:33 CONCLUSION: 1. Mild patchy parenchymal opacities in the medial right midlung zone. Cannot exclude developing airspace disease in the appropriate clinical setting. 2. Cardiomegaly. Assessment and Plan - Assessment (1) ACS (acute coronary syndrome) Code(s): I24.9 - Acute ischemic heart disease, unspecified Status: Acute (2) Renal insufficiency Code(s): N28.9 - Disorder of kidney and ureter, unspecified Status: Acute (3) Lower extremity edema Code(s): R60.0 - Localized edema Status: Acute - Plan Mr. Fuchs is an 88-year-old male with a PMH of CAD s/p CABG 25yrs ago, HTN and CKD who presented to the ER for c/o chest pain and bilateral lower extremity edema x3 wks. he had chest pain that was substernal, moderate worse with exertion., Troponins were 0.03, 0.60, 1.07. Cardiology was consulted. Non-STEMI Coronary artery disease status post CABG 25 years ago Cardiology consulted. Patient is currently on aspirin 81 mg, heparin drip. Cardiac catheterization is a scheduled for today. Continue metoprolol 50 mg p.o. twice daily Patient is currently on atorvastatin 10 mg p.o. will consider increasing atorvastatin to 40 mg. Patient will likely need ARB. Holding ARB due to unknown status of patient's baseline creatinine. Acute kidney injury Possible chronic kidney disease stage III Avoid nephrotoxins. Will avoid REX inhibitor or ARB for now. I suspect patient's baseline creatinine is around 2. Full code. Heparin drip.
--- NOTE | 2018-06-12 11:09 | ECHRPT ---
Indication: CARDIOMYOPATHY CONCLUSIONS The left ventricular systolic function is normal with an estimated ejection fraction of 55%.Normal l eft ventricular size. Mild concentric left ventricular hypertrophy. No definite regional wall motion abnormalities are present. Trace mitral valve regurgitation. Moderate mitral annular calcification is present. Trileaflet aortic valve. Diffuse mild calcification and sclerosis of the aortic valve. Mild aortic v alve regurgitation. No aortic valve stenosis. There is trace tricuspid valve regurgitation. The estimated pulmonary arterial pressure is 37 mmHg. BP: / HR: Rhythm: MEASUREMENTS (Male / Female) Normal Values Technical Quality: 2D ECHO LV Diastolic Diameter PLAX 3.9 cm 4.2 - 5.9 / 3.9 - 5.3 cm LV Systolic Diameter PLAX 3.4 cm IVS Diastolic Thickness 1.2 cm 0.6 - 1.0 / 0.6 - 0.9 cm LVPW Diastolic Thickness 1.2 cm 0.6 - 1.0 / 0.6 - 0.9 cm LV Relative Wall Thickness 0.6 LVOT Diameter 1.8 cm LA Systolic Diameter LX 3.8 cm 3.0 - 4.0 / 2.7 - 3.8 cm LV Ejection Fraction MOD 4C 50.0 % LV Ejection Fraction 4C AL 50.9 % M-MODE LV Diastolic Diameter MM 5.3 cm 4.2 - 5.9 / 3.9 - 5.3 cm LV Systolic Diameter MM 4.1 cm LV Ejection Fraction MM Teich 44.6 % IVS Diastolic Thickness MM 1.0 cm 0.6 - 1.0 / 0.6 - 0.9 cm LVPW Diastolic Thickness MM 1.0 cm 0.6 - 1.0 / 0.6 - 0.9 cm LV Relative Wall Thickness MM 0.4 0.24 - 0.42 / 0.22 - 0.42 Aortic Root Diameter MM 2.3 cm LA Systolic Diameter MM 3.8 cm LA Ao Ratio MM 1.7 AV Cusp Separation MM 0.8 cm DOPPLER AV Peak Velocity 172.0 cm/s AV Peak Gradient 11.8 mmHg AI Peak Velocity 421.5 cm/s AI Peak Gradient 71.1 mmHg AI Pressure Half Time 378.5 ms LVOT Peak Velocity 92.8 cm/s LVOT Peak Gradient 3.4 mmHg AV Area Cont Eq pk 1.4 cm MV Area PHT 2.0 cm Mitral E Point Velocity 73.5 cm/s Mitral A Point Velocity 97.7 cm/s Mitral E to A Ratio 0.8 LV E' Lateral Velocity 8.8 cm/s Mitral E to LV E' Lateral Ratio 8.4 LV E' Septal Velocity 3.6 cm/s Mitral E to LV E' Septal Ratio 20.4 TR Peak Velocity 261.0 cm/s TR Peak Gradient 27.2 mmHg Right Atrial Pressure 10.0 mmHg Pulmonary Artery Systolic Pressu 37.2 mmHg Right Ventricular Systolic Press 37.2 mmHg PV Peak Velocity 97.7 cm/s PV Peak Gradient 3.8 mmHg FINDINGS LEFT VENTRICLE The left ventricular systolic function is normal with an estimated ejection fraction of 55%.Normal l eft ventricular size. Mild concentric left ventricular hypertrophy. No definite regional wall motion abnormalities are present. RIGHT VENTRICLE Normal right ventricular size and systolic function. LEFT ATRIUM The left atrial size is normal. RIGHT ATRIUM The right atrial size is normal. ATRIAL SEPTUM Normal atrial septal thickness without atrial level shunting by limited color doppler interrogation. AORTA The aortic root and proximal ascending aorta are normal in size on limited imaging. MITRAL VALVE Structurally normal mitral valve. Trace mitral valve regurgitation. Moderate mitral annular calcification is present. AORTIC VALVE Trileaflet aortic valve. Diffuse mild calcification and sclerosis of the aortic valve. Mild aortic v alve regurgitation. No aortic valve stenosis. TRICUSPID VALVE Structurally normal tricuspid valve. There is trace tricuspid valve regurgitation. The estimated pulmonary arterial pressure is 37 mmHg. PULMONARY VALVE Trivial pulmonary valve regurgitation. VESSELS The inferior vena cava is normal in size. PERICARDIUM No pericardial effusion. Ludwig Clark MD (Electronically Signed) Final Date:12 June 2018 11:08
[2018-06-12] MEDS ORDERED: hydrALAZINE HCl Inj 20 MG/ML Vial ONE (12:07)
--- NOTE | 2018-06-12 12:22 | CATHPROC ---
[employer] HIS Report Study Information Study Number Admission Scheduled Start Study Start [id number] Jun 11 2018 10:41PM 06/12/2018 Jun 12 2018 10:18AM [facility] Cardiac Catheterization Admit Source Facility Department Emergency department [facility] - Brain Wave Technician Physician and Clinical Staff Initial Rad Dias Audiovisual Lead Technician Francy Loza RN Audiovisual Lead Technician Lilian Lee RN Other cathlab, cathlab Recorder Juan Antoine RCIS(BS) Scrub Joycelyn Bedoya,SENIOR QUALITY CONTROL TECHNICIAN TECH2 Procedures Performed Procedure Location (Site) Vessel Name Coronary Angiograms LCA Left Coronary Coronary Angiograms RCA Right Coronary Coronary Angiograms HEALY-LAD Left Coronary Coronary Angiograms Gft. Stump 1 SVG Graft Wire insertion Fem Art (right) Femoral Art Equipment Time Life Science Teacher Description Size Mfg Part Number Used/Scraped ARROW INTERNATIONAL CATHETER, FR.7 BALLOON [id number] 10:55 FR 7 Used INC. WEDGE PRESSURE *[id number] TRANSDUCER, TRUWAVE [id number] 10:19 IRBY MACIAS * Used W/STOCKCOCK *[id number] TRANSDUCER, TRUWAVE [id number] 10:19 IRBY MACIAS * Used W/STOCKCOCK *[id number] INTRODUCER SET, 10:19 [employer]OOK INC. FR 5 [id number] *[id number] Used MICROPUNCTURE STIFF INTRODUCER SET, 10:55 [employer]. FR 5 [id number] *[id number] Used MICROPUNCTURE STIFF 534-560T *[id number] 534-518T *[id number] 534-520T *[id number] 10:19 [employer] BLANKET,WARM AIR CCL * Used *[id number] 10:19 [employer] PACK, CCL CUSTOM * Used *[id number] 11:11 MEDTRONIC JR 4.0 DXTERITY CATHETER FR 5 Used *[id number] 10:47 MERIT MEDICAL WIRE, 3MMJ .035 180CM 180CM Used *[id number] 10:19 [employer]IT MEDICAL WIRE, 3MMJ .035 180CM 180CM Used *[id number] 11:19 [employer]IT MEDICAL WIRE, EXCHANGE 260CM 3MMJ 260CM Used *[id number] 10:19 NAMIC MANIFOLD, 4 PORT * Used *[id number] 10:19 [employer]COMED OMNIPAQUE, 350 MG, 150ML 150ML [id number] Used [id number] 10:19 TERUMO MEDICAL SHEATH, FR5 TERUMO (10CM) FR 5 Used *[id number] 10:19 TERUMO MEDICAL SHEATH, FR7 TERUMO (10CM) FR 7 Used *[id number] Equipment Model, Serial, Lot Number and Expiration Data Description Model Number Serial Number Lot Number Expiration Date INTRODUCER SET, [id number] 03-15-2021 MICROPUNCTURE STIFF WIRE, EXCHANGE 260CM 3MMJ [id number] 03-10-2021 History: Current Medications Medication Dosage/Unit Route Frequency Last Date/Time Taken Statins (any) Beta Violetta ASA History: Allergies Allergy Reaction No Known Allergies History: Risk Factors Family History of Hypertension Dyslipidemia Previous WI Previous Heart Failure Premature CAD Yes No No No No Prior Valve Prior PCI Prior CABG Prior CABGDate Surgery No No Yes 07/11/1992 Cerebrovascular Peripheral Artery Chronic Lung On Dialysis Diabetes Disease Disease Disease No No No No No History: Symptoms/Diagnosis Selection Items Chest pain History: CV Disease Selection Items Known CAD History: Stress Tests Stress or Imaging Studies Performed No History: Other Disease Selection Items CAD HTN History: WI/CV Data Previous Cath Date Previous CABG Date 07/11/1992 07/11/1992 History: Other Current Smoker No Labs Hgb (g/dl) Hct (%) WBC (l/cumm) Platelets (thousands) 11.60-17.00 35.00-51.00 4.00-11.00 150.00-450.00 13.0 36 3.9 147 Glucose (mg/dl) BUN (mg/dl) Creatinine (mg/dl) BUN:Creatinine (1:x) 74.00-106.00 7.00-18.00 0.50-1.30 10.00-20.00 98 35 1.9 18.4 Na (meq/l) K (meq/l) 136.00-145.00 3.50-5.10 144 3.4 INR (PTT:PT) 0.90-1.10 1.1 Troponin I (ng/ml) CPK-MB (ng/ML) 0.02-0.05 0.50-3.60 1.07 Not Drawn Medication Medication Total Dose (Bolus/Oral) Medication Total Dosage/Unit 1% XYLOCAINE 20 mL FENTANYL 25 mcg Medications (Bolus/Oral) Medication Time Given Dosage/Unit Administered By Reason FENTANYL 06/12/2018 10:51:26 AM 25 mcg Francy Loza 25 mcg FENTANYL given in lab by Francy Loza RN in Left Antecubital via Peripheral IV. Ordered by Rad Persaud 1% XYLOCAINE 06/12/2018 10:55:36 AM 20 mL Rad Persaud 20 mL 1% XYLOCAINE given in lab by Rad Persaud in Right Groin via Subcutaneous. Ordered by Rad Gibbs Medication (Drip) Medication Time Given Dosage/Unit Concentration/Unit Diluent (ml) Solution IV Solutions 06/12/2018 10:23:49 AM 0 mL (IV) 500 NaCl .9 Patient arrived on IV Solutions given by tiffanie moreno in Right Antecubital via Peripheral IV. Pum p/Drip Flow = 20 ml/hr using NaCl .9. Ordered by Rad Persaud Initial Case Assessment Cardiovascular HR Rhythm NIBP Chest Pain 57 sbrady 189/76 0 Edema Present Skin color Skin None Normal Warm Dry Circulatory - Right Pulses Dorsalis Pedis Femoral 3 3 Scale (0,1,2,3,4,d) Circulatory - Left Pulses Dorsalis Pedis Femoral 3 3 Scale (0,1,2,3,4,d) Neurological State Oriented to time-place- Alert Moves all extremities person Respiration - General Respiration Rate SpO2 (%) (B/min) 15 97 Final Case Assessment Cardiovascular HR Rhythm NIBP Chest Pain 61 sr 201/85 0 Edema Present Skin color Skin None Normal Warm Dry Circulatory - Right Pulses Dorsalis Pedis Femoral 2 2 Scale (0,1,2,3,4,d) Circulatory - Left Pulses Dorsalis Pedis Femoral 2 2 Scale (0,1,2,3,4,d) Neurological State Oriented to time-place- Alert Moves all extremities person Respiration - General Respiration Rate SpO2 (%) (B/min) 18 97 Chronological Log Time Study Chronological Log 10:23:34 Patient arrived via Bed. Heparin drip DCed per MD upon leaf size picker. 10:23:35 Patient Name, D.O.B, / Armband Verified By R.N. 10:23:35 Consent signed by the physician and the patient and verified by the Brain Wave Technician staff. 10:23:36 Pre-op and post- op instructions given; patient acknowledges understanding of instructions. 10:23:37 Presedation assessment performed by Brain Wave Technician RN. 10:23:38 Immediate Presedation assesment performed by physician. 10:23:39 Patient has been NPO for More than 6Hrs. 10:23:39 Skin Breakdown-none per patient 10:23:46 Patient Warmer Placed on the Table. 10:23:48 Lambert Prominences Protected 10:23:48 A # 20 IV was noted in the Antecubital (left). Grade = 0 Patient arrived on IV Solutions given by cathlab, cathlab in Right Antecubital via Peripheral I V. Pump/Drip Flow = 20 10:23:49 ml/hr using NaCl .9. Ordered by Rad Persaud 10:23:50 History and physical on the chart or being dictated. 10:36:55 Reference ECG taken 10:38:08 History and physical on the chart or being dictated. 10:38:09 HR=56 bpm, QQHU=503/76 mmhg, SpO2=97.0 %, Resp=14 B/min, Pain=0, Faye=10, Jackson=2 Assessment: Initial Case, HR=57 BPM, Rhythm=sbrady, UCYP=815/76 mmhg, Chest Pain=0, Edema=None, Color=Normal, Skin = Warm, Dry Right Pulses: Jed Ped=3, Femoral=3 10:38:09 Left Pulses: Jed Ped=3, Femoral=3 Neurological: State=Alert, Ox3, QUIÑONEZ Respiration: Resp=15 B/min, SpO2=97 % 10:41:23 Bilateral groins prepped with 2% chlorhexidine, and draped after a 3 minute waiting time. 10:43:09 HR=57 bpm, QFMR=100/74 mmhg, SpO2=98.0 %, Resp=18 B/min, Pain=0, Faye=10, Jackson=2 10:45:08 Pressure channel 1 zeroed. 10:45:33 MD paged 10:47:35 HR=53 bpm, RJMX=518/71 mmhg, SpO2=99.0 %, Resp=10 B/min, Pain=0, Faye=10, Jackson=2 10:49:53 MD arrived. 10:49:58 Immediate Presedation assesment performed by physician. 25 mcg FENTANYL given in lab by Francy Loza, NAHED in Left Antecubital via Peripheral IV. Orde red by Hung, 10:51:26 Rad Mckeon 10:52:34 HR=58 bpm, MICZ=711/78 mmhg, SpO2=99.0 %, Resp=11 B/min, Pain=0, Faye=10, Jackson=2 Time Out. Correct patient, correct procedure, correct physician, labs, allergies, and equipment verified with center medical and lab director 10:55:19 team present. Fire risk assesment completed (see hard stop sheet for coding). Time Out Conc urred by MD and individual staff in procedure. 10:55:35 Case Start 20 mL 1% XYLOCAINE given in lab by Rad Persaud in Right Groin via Subcutaneous. Ordered by Hung, 10:55:36 Rad Mckeon 10:57:35 HR=56 bpm, PSKR=850/85 mmhg, SpO2=97.0 %, Resp=10 B/min, Pain=0, Faye=10, Jackson=2 10:58:18 Access site was Right Femoral Artery. A INTRODUCER SET, MICROPUNCTURE STIFF FR 5 was advanced into the Fem Art (right) using the Perc utaneous 10:58:25 technique. A SHEATH, FR5 TERUMO (10CM) FR 5 was exchanged in the Fem Art (right). This was necessary in or brandi to 10:58:33 accomodate a larger catheter. 11:00:58 Access site was Right Femoral Vein. A INTRODUCER SET, MICROPUNCTURE STIFF FR 5 was advanced into the Fem Vein (right) using the Per cutaneous 11:01:03 technique. A SHEATH, FR7 TERUMO (10CM) FR 7 was exchanged in the Fem Vein (right). This was necessary in o rder to 11:01:19 accomodate a larger catheter. 11:01:27 A CATHETER, FR.7 BALLOON WEDGE PRESSURE FR 7 was inserted via Fem Vein (right) 11:02:38 HR=53 bpm, IKRK=669/71 mmhg, SpO2=98.0 %, Resp=13 B/min, Pain=0, Faye=10, Jackson=2 Recorded Pressure: PCW, HR=68, Condition=Condition 1 11:07:09 (Pulmonary Capillary Wedge) PCW 1510 11:07:37 HR=62 bpm, YYCG=236/77 mmhg, PtL9=559.0 %, Resp=10 B/min, Pain=0, Faye=10, Jackson=2 Recorded Pressure: MPA, HR=64, Condition=Condition 1 11:08:50 (Main Pulmonary Artery) MPA 11:09:01 Saturation: Site=PA (Pulmonary Artery) , O2=73 %, Hgb=13 gm/dl, Condition=Condition 1. Used in calculation. 11:09:16 Saturation: Site=Ao (Aorta) , O2=97.2 %, Hgb=13 gm/dl, Condition=Condition 1. Used in calcu lation. Recorded Pressure: RV, HR=92, Condition=Condition 1 11:09:54 (Right Ventricle) RV 30/-1/4 Recorded Pressure: RA, HR=56, Condition=Condition 1 11:10:24 (Right Atrium) RA 4/4/2 11:10:40 [place] Catheter Removed A JR 4.0 DXTERITY CATHETER FR 5 was advanced over a wire. OMNIPAQUE, 350 MG, 150ML 150ML was us ed for 11:10:41 injections. 11:12:36 HR=55 bpm, GEIV=532/82 mmhg, BgX1=037.0 %, Resp=10 B/min, Pain=0, Faye=10, Jackson=2 Recorded Pressure: LV, HR=58, Condition=Condition 1 11:12:38 (Left Ventricle) LV 212/8/14 Recorded Pressure: LV, Ao, HR=58, Condition=Condition 1 11:12:56 (Left Ventricle) LV 199/5/14, (Aorta) Ao 202/65/118 Recorded Pressure: Ao, HR=55, Condition=Condition 1 11:13:19 (Aorta) Ao 201/61/113 11:13:45 The RCA was injected and visualized at various angles. OMNIPAQUE, 350 MG, 150ML 150ML used . 11:16:21 The Gft. Stump 1 was injected and visualized at various angles. OMNIPAQUE, 350 MG, 150ML 15 0ML used. 11:17:37 HR=64 bpm, YUVD=695/80 mmhg, SpO2=95.0 %, Resp=12 B/min, Pain=0, Faye=10, Jackson=2 11:19:02 A WIRE, EXCHANGE 260CM 3MMJ 260CM was inserted via Fem Art (right). After removing the current catheter a ISABEL INFINITI CATHETER FR 5 was advanced over a WIRE, EXCH LIYA 260CM 11:19:06 3MMJ 260CM. 11:21:32 The HEALY-LAD was injected and visualized at various angles. OMNIPAQUE, 350 MG, 150ML 150ML used. 11:22:38 HR=61 bpm, LOGX=245/77 mmhg, SpO2=97.0 %, Resp=17 B/min, Pain=0, Faye=10, Jackson=2 After removing the current catheter a JL 4.0 INFINITI CATHETER FR 5 was advanced over a WIRE, 3 MMJ .035 180CM 11:23:30 180CM. 11:24:29 The LCA was injected and visualized at various angles. OMNIPAQUE, 350 MG, 150ML 150ML used . After removing the current catheter a JL 3.5 INFINITI CATHETER FR 5 was advanced over a WIRE, 3 MMJ .035 180CM 11:25:41 180CM. 11:27:37 HR=54 bpm, MEJL=368/75 mmhg, SpO2=96.0 %, Resp=12 B/min, Pain=0, Faye=10, Jackson=2 11:27:46 The LCA was injected and visualized at various angles. OMNIPAQUE, 350 MG, 150ML 150ML used . 11:31:17 Catheter was removed 11:31:35 Activated Clotting Time Drawn 11:32:23 Case End (Physician broke scrub) 11:32:38 HR=70 bpm, KCJG=575/82 mmhg, SpO2=95.0 %, Resp=15 B/min, Pain=0, Faye=10, Jackson=2 11:34:41 ACT (Normal Range 90-180) = 106 11:34:51 Arterial Sheath removed; pressure applied to access site. 11:37:35 HR=59 bpm, DIIS=867/77 mmhg, SpO2=97.0 %, Resp=13 B/min, Pain=0, Faye=10, Jackson=2 11:42:38 HR=55 bpm, KCAQ=525/78 mmhg, SpO2=98.0 %, Resp=16 B/min, Pain=0, Faye=10, Jackson=2 11:45:07 Venous Sheath removed; pressure applied to access site. 11:47:37 HR=56 bpm, MOER=291/80 mmhg, SpO2=98.0 %, Resp=15 B/min, Pain=0, Faye=10, Jackson=2 11:52:43 HR=48 bpm, PXJX=332/73 mmhg, SpO2=95.0 %, Resp=13 B/min, Pain=0, Faye=10, Jackson=2 11:55:32 Hemostasis obtained. 11:55:47 Sterile dressing applied to site 11:55:59 No case complications noted. 11:56:02 Cine recording checked. 11:56:06 Bedside Report will be given. 11:56:16 A Left and Right Heart Cath was performed. 12:01:31 Patient moved to bed 12:03:17 Site rebleeding, manual pressure reapplied by Anel PISANO Vitals capture started with the following parameters, Patient=Adult, Interval=5 min, Initial Pr hxmidi=188 mmHg, 12:03:47 Deflation Rate=5 mmHg, Cuff placed on Left Arm 12:05:48 Patient transported to CPCU 12:06:06 HR=60 bpm, VIYE=339/92 mmhg, SpO2=97.0 %, Pain=0, Faye=10, Jackson=2 12:10:11 HR=60 bpm, CDNK=725/85 mmhg, SpO2=96 %, Pain=0, Faye=10, Jackson=2 Assessment: Final Case, HR=61 BPM, Rhythm=sr, RZHX=485/85 mmhg, Chest Pain=0, Edema=None, [place] r=Normal, Skin = Warm, Dry Right Pulses: Jed Ped=2, Femoral=2 12:11:06 Left Pulses: Jed Ped=2, Femoral=2 Neurological: State=Alert, Ox3, QUIÑONEZ Respiration: Resp=18 B/min, SpO2=97 % 12:21:51 Site was redressed and no hematoma noted. 12:22:05 Vitals capture stopped. End Study - Contrast Media Used In Study Contrast Total Opened (mL) Total Used (mL) Total Wasted (mL) Omnipaque 75 75 0 End Study - Maximum Contrast Load Max Contrast Load (mL) 246.1 End Study - Radiation Exposure Fluoro Time Fluoro Dose (mGy) Cine Dose (uGym2) (minutes) 10.1 608 3601 End Study - Sheaths Sheaths Pulled By Sheath Hold Time (min) Joycelyn Bedoya End Study - Patient Disposition Complications Transferred To Interventional Outcome No Critical Care Bed No attempt made
[2018-06-12 19:22] LABS: Bilirubin,Urine Negative (Negative); Clarity,Urine Clear (Clear); Color,Urine Straw (Yellw/Straw); Glucose,Urine (UA) Negative (Negative); Leukocyte Esterase,Urine Negative (Negative); Mucus,Urine Few /lpf (Occasional); Nitrite,Urine Negative (Negative); Specific Gravity,Urine 1.016 (1.002-1.035)
--- NOTE | 2018-06-12 19:36 | US ---
EXAM DATE: 06/12/2018 7:24 PM EST AGE/SEX: 88 years / Male INDICATIONS: Increased lab values. CLINICAL DATA: This is the patient's initial encounter. Patient reports that signs and symptoms have been present for 1 day and indicates a pain score of 0/10. MEDICAL/SURGICAL HISTORY: Hypertension. Chrinic Kidney disease. Edema. Seborrheic keratosis. N one. COMPARISON: No prior exams available for comparison. MEASUREMENTS: Right Kidney:__7.2 x 5.2 x 4.3 cm Left Kidney:__12.1 x 5.3 x 4.9 x cm FINDINGS: Right Kidney: No mass or hydronephrosis. Normal echogenicity. Simple cyst lower pole measures 3.2 cm. Left Kidney: No mass or hydronephrosis. Normal echogenicity. Simple cyst lower pole measures 5.1 cm. Bladder: There is irregular wall thickening within the urinary bladder. Other: None. CONCLUSION: 1. Bilateral renal cysts. 2. Irregular wall thickening within the urinary bladder. Cystitis and neoplastic process should be e xcluded. Electronically signed by: Jaspreet Armstrong MD 06/12/2018 7:35 PM EST
--- NOTE | 2018-06-12 19:56 | ECG ---
Date Performed: 06/11/2018 Time Performed: 20:31:27 PTAGE: 88 years EKG: Sinus rhythm WITH OCCASIONAL SUPRAVENTRICULAR PREMATURE COMPLEXES MINIMAL ST DEPRESSION BORDERLINE ECG NO PREVIOUS TRACING DOCTOR: Syl Aguilar Interpretating Date/Time 06/12/2018 19:53:44
--- NOTE | 2018-06-12 20:39 | MB ---
cc: Macy Weathers MD DATE: 06/12/2018 REASON FOR CONSULTATION: Chronic kidney disease with elevated BUN and creatinine. HISTORY OF PRESENT ILLNESS: This is an 88-year-old male with a past medical history of ischemic heart disease, history of coronary artery bypass grafting, hypertension, chronic kidney disease, who came to the emergency department because of chest pain and increased swelling of the legs for the last 2-3 weeks. I was called to see the patient because of an elevated BUN and creatinine. The patient has a known history of chronic kidney disease. He has been following with his primary physician and was supposed to see some talent acquisition associate, but he has not gone to see anybody. His creatinine was 2.0 on admission and is 1.9 today. The patient does not know exactly how bad his kidney function was and we do not have any previous labs available in the computer. Here, the patient was seen by the cotton breeder and when I saw him in the morning, he was going for a cardiac catheterization. He did not have any chest pain at that time. The patient noticed worsening of swelling of the legs, and the chest pain was mainly substernal, worse with exertion and has been going on for the last 1 week. He denies any dysuria, hematuria or difficulty in passing urine. There is no history of taking any nonsteroidal anti-inflammatory drugs. PAST MEDICAL HISTORY: Hypertension, chronic kidney disease, ischemic heart disease, edema of the legs. PAST SURGICAL HISTORY: Coronary artery bypass . REVIEW OF SYSTEMS: The patient denies any history of fever. He has mild shortness of breath on exertion. He has retrosternal chest pain with exertion. He has no history of dysuria or hematuria. No nausea or vomiting. No history of diarrhea. He denies taking any nonsteroidal anti-inflammatory drugs. SOCIAL HISTORY: The patient is . There is no history of smoking or alcoholism. FAMILY HISTORY: Noncontributory. ALLERGIES: HE HAS NO KNOWN DRUG ALLERGIES. MEDICATIONS: Currently, he has been on the following medications: 1. Aspirin 81 mg once a day. 2. Lipitor 10 mg daily. 3. Dulcolax p.r.n. 4. Lactulose 30 mL p.r.n. 5. Metoprolol 50 mg b.i.d. 6. Morphine 2 mg IV q.4 hours p.r.n. 7. Nitroglycerin p.r.n. 8. Zofran p.r.n. 9. Cornelia-Colace 1 tablet b.i.d. 10. Senokot 17.2 mg q.12 hours. PHYSICAL EXAMINATION: GENERAL: The patient is awake, alert. He is not in acute distress right now. VITAL SIGNS: His last blood pressure was recorded as 188/76. His blood pressure has been on the higher side. Temperature is 98.4 and oxygen saturation is 98% on room air. HEENT: Pupils are mid constricted. Nonicteric sclerae. Conjunctivae normal. NECK: Supple. JVD is not elevated. LUNGS: The patient has bilateral good air entry with no crackles or wheezing. HEART: S1, S2. Regular rhythm. ABDOMEN: Soft, lax. There is no tenderness. Bowel sounds positive. EXTREMITIES: There is no pedal edema. INVESTIGATIONS: WBC count is 5.9, hemoglobin 13.2, platelet count 147, neutrophils 62.6. INR 1.1. Sodium 144, potassium 3.4, chloride 108, bicarbonate 29.6, BUN 35, creatinine 1.9, calcium 9.3, AST 34, ALT 18. Troponin is 1.07. Total protein 7.2, albumin 3.6. There is no urinalysis done. IMAGING STUDIES: The patient had a chest x-ray done which shows cardiomegaly and some patchy opacity in the right mid lung zone. ASSESSMENT: 1. Chest pain and ischemic heart disease. 2. Chronic kidney disease. 3. Hypertension, uncontrolled. 4. Edema of the legs. 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 I will get a urinalysis to see if he has any proteinuria. We will also get an ultrasound of the kidneys. The patient had a cardiac catheterization. He was going when I saw him in the morning and we will follow the results. I did discuss with the patient about the possibility of worsening renal function because of the contrast. Cardiology is aware about his renal function. We will keep a close eye on it and give him gentle hydration, follow the urine output and the BUN and creatinine. Thank you for the consultation. I will follow the patient while he is in the hospital. Lisandra Weathers MD AQJ/jl/do , 05:20 PM , 05:33 PM
[2018-06-12] MEDS: Heparin Drip 25,000 UNIT/250 ML BAG IV.CONT PRN (21:43)
[2018-06-12 22:50] LABS: Activated Partial Thrombo Time 27.1 sec (23.4-31.7); INR 1.1 Ratio; Prothrombin Time 11.4 sec (9.8-11.6)
--- NOTE | 2018-06-12 23:31 | MB ---
cc: Rad Persaud DO DATE: 06/12/2018 REASON FOR CONSULTATION: NSTEMI. HISTORY OF PRESENT ILLNESS: Martín Fuchs is a pleasant 88-year-old male who sees my partner, Dr. Montes De Oca, in the office, who presented to [facility] Emergency Room due to chest pain with exertion. He previously underwent a nuclear stress test in July and this was reviewed showing no ischemia. He states that over the past week, he has been getting more significant chest pain which is 6/10, especially with ambulation. The patient states it has been getting progressively worse over the last week. He has also noticed lower extremity edema for the past [address] Montes De Oca on Tuesday and he was instructed to come to the emergency room due to the chest pain. Overnight, his troponins increased and he was started on a heparin drip. In seeing him, he is currently chest pain free. PAST MEDICAL HISTORY: 1. Coronary artery disease. 2. Chronic kidney disease (previous creatinine 1.8 outpatient). 3. Hypertension. 4. Seborrheic keratosis. PAST SURGICAL HISTORY: CABG x 2 (25 years ago in [facility]). ALLERGIES: NO KNOWN DRUG ALLERGIES. MEDICATIONS: 1. Losartan 100 mg daily. 2. Lipitor 10 mg daily. 3. Aspirin 81 mg daily. 4. Norvasc 5 mg daily. 5. Metoprolol tartrate 50 mg b.i.d. FAMILY HISTORY: Strong family history of coronary artery disease. Denies sudden cardiac within the family. SOCIAL HISTORY: Denies tobacco, alcohol or drug abuse. REVIEW OF SYSTEMS: Fourteen systems were reviewed including osteopathic. Pertinent positives and negatives above, otherwise negative. PHYSICAL EXAMINATION: VITAL SIGNS: Temperature 98.4, heart rate 79, blood pressure 188/76, respirations 18, pulse oximetry 95% on room air. GENERAL: The patient appears well, in no acute distress. Alert, awake, oriented x 3. HEENT: Extraocular muscles intact. Mucous membranes moist. NECK: Supple. No JVD at 45 degrees. No carotid bruits heard bilaterally. Carotid upstrokes brisk in nature. HEART: Regular rate and rhythm. Positive first and second heart sounds with a 1/6 diastolic murmur to the apex. LUNGS: Clear to auscultation bilaterally. No wheezes, rales or rhonchi. ABDOMEN: Soft, nontender, nondistended. No organomegaly noted. EXTREMITIES: Show no clubbing, cyanosis or edema. Femoral and distal pulses are intact bilaterally. NEUROLOGIC: No focal deficits. SKIN: Warm, dry and intact. OSTEOPATHIC: No kyphoscoliosis, lordosis or paraspinal tender points. LABORATORY DATA: Hemoglobin 13.2, hematocrit 36.5, platelets 147. Potassium 3.4, BUN 35, creatinine 1.97. Troponin 1.07. Electrocardiogram (06/11/2018 at 2031 hours), sinus rhythm, occasional supraventricular complexes, minimal ST depressions noted throughout. IMPRESSION: 1. Non-ST elevation myocardial infarction. 2. Chest pain concerning for coronary insufficiency. 3. Chronic kidney disease. 4. Lower extremity edema with probable congestive heart failure. 5. Coronary artery disease with a history of coronary artery bypass graft x 2. 6. Strong family history of heart disease. RECOMMENDATIONS: 1. Mr. Fuchs presented with what appears to be unstable angina and was found to have an elevated troponin. Because of this, he will be recommended cardiac catheterization. Risks, benefits and alternatives were explained to him and he consented to such. 2. We will plan on him undergoing a left and right heart catheterization due to what appears to be congestive heart failure. 3. We will check a 2-D echo to look at his overall left ventricular function, cardiac structure and possible valvulopathies. 4. Right now, his creatinine is 1.97 with a previous one earlier year of 1.8. Ultimately, he is around his baseline and I feel that he needs to go to the label coder sooner rather than later due to the increasing unstable angina over the past week. It was discussed with him that he has a higher chance of acute kidney injury or being placed on hemodialysis temporarily or permanently. 5. Overall, he will need further blood pressure management before discharge. 6. Further recommendations will be made based on the hospital course. Thank you for allowing me to see Martín Fuchs. If there are any questions, please do not hesitate to call. DO Geno Iglesias , 08:34 PM , 08:49 PM
--- NOTE | 2018-06-13 00:09 | MA ---
cc: [facility] cronin Gentry SEGURA DATE: 06/12/2018 PROCEDURE PERFORMED: 1. Right heart catheterization. 2. Coronary angiogram. 3. Bypass angiogram. PREPROCEDURE DIAGNOSES: 1. [id number] myocardial infarction. 2. Chest pain concerning for coronary insufficiency. 3. Acute heart failure of unknown type. 4. Coronary artery disease with a history of coronary artery bypass graft x 2. POSTPROCEDURE DIAGNOSES: 1. Significant for coronary artery disease with a history of coronary artery bypass graft x 2 (1/2 grafts patent). 2. Non-ST elevation myocardial infarction. 3. Compensated heart failure. MEDICATIONS: Fentanyl 25 mcg. CONTRAST USED: 75 mL. FLUOROSCOPY TIME: 10.1 minutes. MODERATE SEDATION: Zero minutes. FRAILTY SCORE: 5. ESTIMATED BLOOD LOSS: 10 mL. PROCEDURAL SUMMARY: Martín Fuchs is a pleasant 88-year-old male who sees my partner, Dr. Montes De Oca, in the office and presented due to chest pain concerning for coronary insufficiency. He was found to have an elevated troponin as well as edema and an x-ray that appears to be acute heart failure. Because of all this, he was recommended cardiac catheterization. Risks, benefits and alternatives were explained to him and he consented to such. He was brought to the lab and prepped in the usual sterile fashion. The right femoral artery was accessed using a modified Seldinger technique and placement of a 5 Vietnamese sheath. The right femoral vein was accessed using a modified Seldinger technique and placement of a 7 [place] sheath. Both were easily aspirated and flushed. A JR4 was advanced over a J-wire to the ascending aorta and across the aortic valve for measurement of left ventricular pressure. This was pulled back across the aortic valve showing no significant gradient of aortic stenosis. The JR4 was used for selective angiography of the [place] right coronary artery, the saphenous vein graft to obtuse marginal and the HEALY to LAD. This was exchanged out for a JL3.5, which was used for selective angiography of the left coronary artery system. The JL3.5 was removed over a J-wire. An ACT was checked and as it was in an appropriate range, both sheaths were removed and pressure held for hemostasis. Upon moving to the stretcher, he was noted to start bleeding again, so pressure was held once again for hemostasis. The patient left the laborer concrete plant cardiovascularly stable. FINDINGS: LEFT MAIN: Normal size vessel with 20% disease in the proximal portion. It bifurcates into the LAD and circumflex. LEFT ANTERIOR DESCENDING: Moderate size vessel with 70% disease throughout the proximal portion and 100% disease in the mid portion. Before being occluded, it gives off 1 large septal title abstractor which supplies collaterals to the distal circumflex. It also has 2 overall small diagonals which come off it with diffuse 40% to 50% disease. LEFT CIRCUMFLEX: 100% occluded at the ostial portion. Distal portion of the circumflex proper is filled with collaterals from the first septal as well as the nondominant right. RIGHT CORONARY ARTERY: Small and nondominant. LEFT INTERNAL MAMMARY ARTERY TO LEFT ANTERIOR DESCENDING: Patent with some mild disease at the anastomosis. The LAD fills both antegrade and retrograde, filling the second diagonal. SAPHENOUS VEIN GRAFT TO OBTUSE MARGINAL: Occluded. HEMODYNAMICS: RA 2. RV 30/0, RVEDP 4. PA 31/9, mean PA 18. Wedge 10. LVEDP 14. Cardiac output 5.6. Cardiac index 2.7. IMPRESSION: 1. Non-ST elevation myocardial infarction. 2. Coronary artery disease with a history of coronary artery bypass graft x 2 (1/2 grafts patent). 3. Accelerated hypertension. 4. Compensated diastolic heart failure. RECOMMENDATIONS: 1. Mr. Fuchs underwent a cardiac catheterization as above and from a hemodynamic standpoint, appears to be well compensated with a normalized wedge and LVEDP. 2. He does have significant coronary artery disease with 1 of his 2 grafts patent. 3. Overall, by echocardiogram, he has a relatively normal ejection fraction and previous echo and nuclear stress test have mentioned hypokinesis of the inferolateral wall with normal perfusion. 4. Overall complex case. I will discuss with him further consideration of stenting of the LAD into the septal which supplies collateralization to the distal circumflex. Unfortunately, I do not believe that doing a INFANTRY SENIOR SERGEANT procedure of his left circumflex is his best option as it would mean stenting back into the left main and ultimately it appears that the obtuse marginal is totally occluded with no flow, so the benefit would be very little at this time for a high risk procedure. 5. 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 6. He will be given options of medical management versus PCI of the LAD into the septal. If he continues to have episodes in the future, then I would consider high risk INFANTRY SENIOR SERGEANT if he was on extensive medical management, but once again, this would be very high risk and may not benefit much without the obtuse marginal. 7. He will be placed on a heparin drip 6 hours after the sheaths are removed. 8. We will watch his kidney function over the next 24-48 hours and further decide how we should proceed. Thank you for allowing me to see Martín Fuchs. If there are any questions, please do not hesitate to call. DO DARLENE Iglesias/tanisha , 08:45 PM , 09:01 PM
[2018-06-13] MEDS ORDERED: hydrALAZINE HCl Inj 20 MG/ML Vial IV.PUSH ONE (03:57)
[2018-06-13 04:26] LABS: Baso % (Auto) 0.4 % (0.0-2.0); Eos # (Auto) 0.4 th/mm3 (0.0-0.4); Eos % (Auto) 6.1 % (0.0-4.0); Hematocrit 37.8 % (39.0-51.0); Hemoglobin 13.3 gm/dL (13.0-17.0); Lymph # (Auto) 1.8 th/mm3 (1.0-4.8); Lymph % (Auto) 26.8 % (9.0-44.0); Mean Corpuscular HGB Conc 35.2 % (32.0-36.0); Mean Corpuscular Hemoglobin 33.4 pg (27.0-34.0); Mean Corpuscular Volume 94.9 fL (80.0-100.0); Mean Platelet Volume 9.9 fL (7.0-11.0); Mono # (Auto) 0.6 th/mm3 (0.0-0.9); Mono % (Auto) 8.8 % (0.0-8.0); Neut % (Auto) 57.9 % (16.0-70.0); Platelet Count 139 th/mm3 (150-450); Red Blood Count 3.98 mil/mm3 (4.50-5.90); White Blood Count 6.9 th/mm3 (4.0-11.0)
[2018-06-13 04:52] LABS: Calcium 8.5 mg/dL (8.5-10.1); Carbon Dioxide 26.4 meq/L (21.0-32.0); Potassium 3.4 meq/L (3.5-5.1)
--- NOTE | 2018-06-13 08:04 | P.PNNP ---
Subjective Interval history: Patient is alert, no chest pain, no SOB, feeling better. Physical Exam Vital signs: Vital Signs 06/12/18 08:00 06/12/18 09:00 06/12/18 09:17 Temperature Pulse Rate 60 60 Respiratory Rate Blood Pressure Pulse Oximetry 98 06/12/18 10:00 06/12/18 12:33 06/12/18 13:00 Temperature Pulse Rate 56 L 62 58 L Respiratory Rate Blood Pressure Pulse Oximetry 06/12/18 14:00 06/12/18 15:00 06/12/18 16:00 Temperature 98.2 F Pulse Rate 60 50 L 64 Respiratory Rate 18 Blood Pressure 143/66 H Pulse Oximetry 97 06/12/18 17:00 06/12/18 18:00 06/12/18 19:00 Temperature 98.1 F Pulse Rate 68 90 72 Respiratory Rate 18 Blood Pressure 149/66 H Pulse Oximetry 97 06/12/18 20:00 06/12/18 21:00 06/12/18 21:03 Temperature Pulse Rate 73 55 L Respiratory Rate Blood Pressure 149/67 H Pulse Oximetry 97 06/12/18 22:00 06/12/18 23:00 06/13/18 00:00 Temperature 97.8 F Pulse Rate 54 L 60 60 Respiratory Rate 18 Blood Pressure 155/74 H Pulse Oximetry 97 06/13/18 01:00 06/13/18 02:00 06/13/18 03:00 Temperature 97.8 F Pulse Rate 60 61 60 Respiratory Rate 18 Blood Pressure 178/80 H Pulse Oximetry 97 06/13/18 04:00 06/13/18 05:00 06/13/18 05:57 Temperature Pulse Rate 76 77 61 Respiratory Rate Blood Pressure Pulse Oximetry 06/13/18 07:00 Temperature Pulse Rate 62 Respiratory Rate Blood Pressure Pulse Oximetry Intake & Output 06/12/18 06/13/18 06/13/18 18:59 06:59 18:59 Intake Total 640 / 640 240 / 240 Output Total 600 / 600 400 / 400 Balance 40 / 40 -160 / -160 Weight 72.5 kg Intake: IV 10 / 10 Heparin/NS PF Inj 1,500 ML @ 0 10 / 10 mls/hr .ROUTE .[facility] Rx#: [id number] Oral 480 / 480 240 / 240 Anesthesia Amount 150 / 150 Output: Urine 600 / 600 400 / 400 Other: # Voids 3 2 # Incontinent Voids 1 Narrative: GENERAL: Alert, oriented x3, NAD. SKIN: Warm and dry. HEAD: Normocephalic. EYES: No scleral icterus. No injection or drainage. NECK: Supple, trachea midline. No JVD or lymphadenopathy. CARDIOVASCULAR: Regular rate and rhythm without murmurs, gallops, or rubs. RESPIRATORY: Breath sounds equal bilaterally. No accessory muscle use. GASTROINTESTINAL: Abdomen soft, non-tender, nondistended. MUSCULOSKELETAL: No cyanosis. Lower extremity edema 1+. BACK: Nontender without obvious deformity. No CVA tenderness. Assessment and Plan - Assessment (1) Hypertension Code(s): I10 - Essential (primary) hypertension Status: Acute (2) Chronic kidney disease (CKD) Code(s): N18.9 - Chronic kidney disease, unspecified Status: Acute (3) ACS (acute coronary syndrome) Code(s): I24.9 - Acute ischemic heart disease, unspecified Status: Acute (4) Lower extremity edema Code(s): R60.0 - Localized edema Status: Acute - Plan Patient with chronic kidney disease and Hypertension, Has IHD and post CABG, Post Cardiac Cath done yesterday, results noted. Need better BP control. On Metoprolol, will add Nifedipine. Creatinine is almost same, possibly will need another Cardiac Cath. Encourage oral fluids, follow the urine out put and BMP.
[2018-06-13] MEDS: Metoprolol Tartrate 50 MG Tablet PO SCH ×2 (08:35→21:10)
[2018-06-13] MEDS: Senna/Docusate Sodium 8.6/50 MG Tablet PO SCH ×2 (08:35→21:10)
--- NOTE | 2018-06-13 09:33 | P.PN ---
Subjective Interval history: Follow-up for non-STEMI, hypertension, likely CKD. Patient is currently doing well. Denies any chest pain, shortness of breath, fever or chills. He ambulated in the room and did not have any further chest pain. Physical Exam Vital signs: Vital Signs 06/12/18 10:00 06/12/18 12:33 06/12/18 13:00 Temperature Pulse Rate 56 L 62 58 L Respiratory Rate Blood Pressure Pulse Oximetry 06/12/18 14:00 06/12/18 15:00 06/12/18 16:00 Temperature 98.2 F Pulse Rate 60 50 L 64 Respiratory Rate 18 Blood Pressure 143/66 H Pulse Oximetry 97 06/12/18 17:00 06/12/18 18:00 06/12/18 19:00 Temperature 98.1 F Pulse Rate 68 90 72 Respiratory Rate 18 Blood Pressure 149/66 H Pulse Oximetry 97 06/12/18 20:00 06/12/18 21:00 06/12/18 21:03 Temperature Pulse Rate 73 55 L Respiratory Rate Blood Pressure 149/67 H Pulse Oximetry 97 06/12/18 22:00 06/12/18 23:00 06/13/18 00:00 Temperature 97.8 F Pulse Rate 54 L 60 60 Respiratory Rate 18 Blood Pressure 155/74 H Pulse Oximetry 97 06/13/18 01:00 06/13/18 02:00 06/13/18 03:00 Temperature 97.8 F Pulse Rate 60 61 60 Respiratory Rate 18 Blood Pressure 178/80 H Pulse Oximetry 97 06/13/18 04:00 06/13/18 05:00 06/13/18 05:57 Temperature Pulse Rate 76 77 61 Respiratory Rate Blood Pressure Pulse Oximetry 06/13/18 07:00 Temperature Pulse Rate 62 Respiratory Rate Blood Pressure Pulse Oximetry Intake & Output 06/12/18 06/13/18 06/13/18 18:59 06:59 18:59 Intake Total 640 / 640 240 / 240 Output Total 600 / 600 400 / 400 Balance 40 / 40 -160 / -160 Weight 72.5 kg Intake: IV 10 / 10 Heparin/NS PF Inj 1,500 ML @ 0 10 / 10 mls/hr .ROUTE .[facility] Rx#: [id number] Oral 480 / 480 240 / 240 Anesthesia Amount 150 / 150 Output: Urine 600 / 600 400 / 400 Other: # Voids 3 2 # Incontinent Voids 1 Narrative: GENERAL: Alert, oriented x3, NAD. SKIN: Warm and dry. HEAD: Normocephalic. EYES: No scleral icterus. No injection or drainage. NECK: Supple, trachea midline. No JVD or lymphadenopathy. CARDIOVASCULAR: Regular rate and rhythm without murmurs, gallops, or rubs. RESPIRATORY: Breath sounds equal bilaterally. No accessory muscle use. GASTROINTESTINAL: Abdomen soft, non-tender, nondistended. MUSCULOSKELETAL: No cyanosis, No lower ext edema. BACK: Nontender without obvious deformity. No CVA tenderness. Results - Labs CBC & Chem 7: 06/13/18 03:57 06/13/18 03:57 Laboratory Results - last 24 hr 06/12/18 06/12/18 06/13/18 18:45 21:45 03:57 WBC 6.9 RBC 3.98 L Hgb 13.3 Hct 37.8 L MCV 94.9 MCH 33.4 MCHC 35.2 RDW 13.0 Plt Count 139 L MPV 9.9 Neut % (Auto) 57.9 Lymph % (Auto) 26.8 [place] % (Auto) 8.8 H Eos % (Auto) 6.1 H Baso % (Auto) 0.4 Neut # (Auto) 4.0 Lymph # (Auto) 1.8 [place] # (Auto) 0.6 Eos # (Auto) 0.4 Baso # (Auto) 0.0 WBC Differential . Differential Comment Auto diff final PT 11.4 INR 1.1 APTT 27.1 Sodium Potassium Chloride Carbon Dioxide Anion Gap BUN Creatinine Estimated GFR Random Glucose Calcium Urine Color Straw Urine Clarity Clear Urine pH 7.0 Ur Specific [place] 1.016 Urine Protein Negative Urine Glucose (UA) Negative Urine Ketones Negative Urine Occult Blood Small H Urine Nitrate Negative Urine Bilirubin Negative Urine Urobilinogen Less than 2 Ur Leukocyte Esterase Negative Urine RBC Less than 1 Urine WBC Less than 1 Urine Mucus Few H Ur Microscopic Review Not Reportable 06/13/18 06/13/18 03:57 03:57 WBC RBC Hgb Hct MCV MCH MCHC RDW Plt Count MPV Neut % (Auto) Lymph % (Auto) [place] % (Auto) Eos % (Auto) Baso % (Auto) Neut # (Auto) Lymph # (Auto) [place] # (Auto) Eos # (Auto) Baso # (Auto) WBC Differential Differential Comment PT INR APTT 44.3 H D Sodium 142 Potassium 3.4 L Chloride 107 Carbon Dioxide 26.4 Anion Gap 9 BUN 34 H Creatinine 2.08 H Estimated GFR 30 L Random Glucose 90 Calcium 8.5 D Urine Color Urine Clarity Urine pH Ur Specific [place] Urine Protein Urine Glucose (UA) Urine Ketones Urine Occult Blood Urine Nitrate Urine Bilirubin Urine Urobilinogen Ur Leukocyte Esterase Urine RBC Urine WBC Urine Mucus Ur Microscopic Review - Imaging Impressions Abdomen/Bladder Ultrasound 06/12/18 00:00 CONCLUSION: 1. Bilateral renal cysts. 2. Irregular wall thickening within the urinary bladder. Cystitis and neoplastic process should be excluded. - Procedures Cath 06/12/2018 1. Non-ST elevation myocardial infarction. 2. Coronary artery disease with a history of coronary artery bypass graft x 2 (1/2 grafts patent). 3. Accelerated hypertension. 4. Compensated diastolic heart failure. Assessment and Plan - Assessment (1) ACS (acute coronary syndrome) Code(s): I24.9 - Acute ischemic heart disease, unspecified Status: Acute (2) Renal insufficiency Code(s): N28.9 - Disorder of kidney and ureter, unspecified Status: Acute (3) Lower extremity edema Code(s): R60.0 - Localized edema Status: Acute - Plan Mr. Fuchs is an 88-year-old male with a PMH of CAD s/p CABG 25yrs ago, HTN and CKD who presented to the ER for c/o chest pain and bilateral lower extremity edema x3 wks. he had chest pain that was substernal, moderate worse with exertion., Troponins were 0.03, 0.60, 1.07. Cardiology was consulted. Non-STEMI Coronary artery disease status post CABG 25 years ago Cardiology consulted. Patient is currently on aspirin 81 mg, heparin drip. Cardiac catheterization on 06/12/2018 - Cardiology may consider a complex PCI to stent LAD. Continue metoprolol 50 mg p.o. twice daily Patient is currently on atorvastatin 10 mg p.o. will increase atorvastatin to 40 mg. Patient will likely need ARB. Holding ARB due to unknown status of patient's baseline creatinine. Acute kidney injury Possible chronic kidney disease stage III Avoid nephrotoxins. Will avoid REX inhibitor or ARB for now. Creatinine 1.97 --> 2.08 today. Hypertension -BP was in the 170s. Nephrology started Nifedipine 60mg Qday. -BP this morning was 157 systolic. Full code. Heparin drip.
--- NOTE | 2018-06-13 15:01 | P.PNCA ---
Subjective Interval history: No events overnight No chest pain Medications and Allergies Active Medications: Active Medications Acetaminophen (Tylenol) 650 mg PO Q4H PRN PRN Reason: Temp > 100.4 Al Hydroxide/Mg Hydroxide (Milk Of Magnesia Liq) 30 ml PO Q12H PRN PRN Reason: Mild Constipation Aspirin (Ecotrin) 81 mg PO DAILY [facility] Last Admin: 06/13/18 08:35 Dose: 81 mg Atorvastatin Calcium (Lipitor) 40 mg PO DAILY [facility] Bisacodyl (Dulcolax Supp) 10 mg RECTAL DAILY PRN PRN Reason: SEVERE CONSITIPATION Sodium Chloride (Ns Inj) 1,000 mls @ 84 mls/hr IV.CONT .[id number] [facility] Heparin Sodium/Dextrose (Heparin/D5w 25,000 U/250 Ml) 25,000 unit in 250 mls @ 7 mls/hr IV.CONT TITRATE PRN; Protocol PRN Reason: Per Protocol Last Admin: 06/12/18 21:43 Dose: 700 units/hr, 7 mls/hr Lactulose (Lactulose Liq) 30 ml PO DAILY PRN PRN Reason: SEVERE CONSITIPATION Metoprolol Tartrate (Lopressor) 50 mg PO BID [facility] Last Admin: 06/13/18 08:35 Dose: 50 mg Morphine Sulfate (Morphine Inj) 2 mg IV.PUSH Q4H PRN PRN Reason: PAIN 6-10 Nifedipine (Procardia Xl) 60 mg PO DAILY [facility] Last Admin: 06/13/18 09:40 Dose: 60 mg Nitroglycerin (Nitro-Bid 2% Oint) 0.5 inch TOPICAL Q6HR PRN PRN Reason: CHEST PAIN Ondansetron HCl (Zofran Inj) 4 mg IV.PUSH Q6H PRN PRN Reason: NAUSEA OR VOMITING Senna/Docusate Sodium (Cornelia-Colace) 1 tab PO BID [facility] Last Admin: 06/13/18 08:35 Dose: 1 tab Sennosides (Senokot) 17.2 mg PO Q12H PRN PRN Reason: Moderate Constipation Sodium Chloride (Ns Flush) 2 ml IV.FLUSH BID [facility] Last Admin: 06/13/18 08:35 Dose: 2 ml Sodium Chloride (Ns Flush) 2 ml IV.FLUSH PRN PRN PRN Reason: FLUSH AFTER USING IV ACCESS Allergies Allergy/AdvReac Type Severity Reaction Status Date / Time No Known Allergies Allergy Verified 06/11/18 20:23 Home Medications Medication Instructions Recorded Confirmed Type amlodipine 5 mg PO DAILY 06/11/18 06/11/18 History aspirin [Aspir-81] 81 mg PO DAILY 06/11/18 06/11/18 History atorvastatin 10 mg PO DAILY 06/11/18 06/11/18 History cholecalciferol (vitamin D3) 2,000 unit PO DAILY 06/11/18 06/11/18 History [Vitamin D3] losartan 100 mg PO DAILY 06/11/18 06/11/18 History metoprolol tartrate 50 mg PO BID 06/11/18 06/11/18 History Physical Exam Vital signs: Vital Signs 06/12/18 15:00 06/12/18 16:00 06/12/18 17:00 Temperature 98.2 F Pulse Rate 50 L 64 68 Respiratory Rate 18 Blood Pressure 143/66 H Pulse Oximetry 97 06/12/18 18:00 06/12/18 19:00 06/12/18 20:00 Temperature 98.1 F Pulse Rate 90 72 73 Respiratory Rate 18 Blood Pressure 149/66 H Pulse Oximetry 97 97 06/12/18 21:00 06/12/18 21:03 06/12/18 22:00 Temperature Pulse Rate 55 L 54 L Respiratory Rate Blood Pressure 149/67 H Pulse Oximetry 06/12/18 23:00 06/13/18 00:00 06/13/18 01:00 Temperature 97.8 F Pulse Rate 60 60 60 Respiratory Rate 18 Blood Pressure 155/74 H Pulse Oximetry 97 06/13/18 02:00 06/13/18 03:00 06/13/18 04:00 Temperature 97.8 F Pulse Rate 61 60 76 Respiratory Rate 18 Blood Pressure 178/80 H Pulse Oximetry 97 06/13/18 05:00 06/13/18 05:57 06/13/18 07:00 Temperature 98.3 F Pulse Rate 77 61 92 H Respiratory Rate 18 Blood Pressure 157/68 H Pulse Oximetry 96 06/13/18 08:00 06/13/18 09:00 06/13/18 10:00 Temperature Pulse Rate 90 74 66 Respiratory Rate Blood Pressure Pulse Oximetry 96 06/13/18 10:48 06/13/18 11:00 06/13/18 13:00 Temperature 97.8 F Pulse Rate 60 56 L Respiratory Rate 18 Blood Pressure 147/67 H Pulse Oximetry 96 98 Intake & Output 06/12/18 06/13/18 06/13/18 18:59 06:59 18:59 Intake Total 640 / 640 240 / 240 Output Total 600 / 600 400 / 400 Balance 40 / 40 -160 / -160 Weight 72.5 kg Intake: IV 10 / 10 Heparin/NS PF Inj 1,500 ML @ 0 10 / 10 mls/hr .ROUTE .[facility] Rx#: [id number] Oral 480 / 480 240 / 240 Anesthesia Amount 150 / 150 Output: Urine 600 / 600 400 / 400 Other: # Voids 3 2 # Incontinent Voids 1 Narrative: GENERAL: Alert, oriented x3, NAD. SKIN: Warm and dry. HEAD: Normocephalic. EYES: No scleral icterus. No injection or drainage. NECK: Supple, trachea midline. No JVD or lymphadenopathy. CARDIOVASCULAR: Regular rate and rhythm without murmurs, gallops, or rubs. RESPIRATORY: Breath sounds equal bilaterally. No accessory muscle use. GASTROINTESTINAL: Abdomen soft, non-tender, nondistended. MUSCULOSKELETAL: No cyanosis, No lower ext edema. Right femoral no hematoma, no ecchymosis BACK: Nontender without obvious deformity. No CVA tenderness. Results 06/13/18 03:57 06/13/18 03:57 Cardiac Enzymes 06/11/18 06/11/18 06/11/18 Range/Units 20:35 20:35 23:55 AST 29 (15-37) U/L Troponin I 0.03 0.60 H (0.02-0.05) ng/mL B-Natriuretic Peptide 247 H (0-100) pg/mL 06/12/18 Range/Units 03:49 AST 24 (15-37) U/L Troponin I 1.07 H* (0.02-0.05) ng/mL B-Natriuretic Peptide (0-100) pg/mL Coagulation 06/11/18 06/11/18 06/12/18 Range/Units 20:35 22:54 03:49 PT 10.7 (9.8-11.6) sec APTT 23.5 26.4 (23.4-31.7) sec B-Natriuretic Peptide 247 H (0-100) pg/mL 1206/13/18 06/13/18 Range/Units 21:45 03:57 09:40 PT 11.4 (9.8-11.6) sec APTT 27.1 44.3 H D 29.0 D (23.4-31.7) sec B-Natriuretic Peptide (0-100) pg/mL CBC 06/11/18 06/12/18 06/13/18 Range/Units 20:35 03:49 03:57 WBC 7.8 5.9 6.9 (4.0-11.0) th/mm3 RBC 4.15 L 3.93 L 3.98 L (4.50-5.90) mil/mm3 Hgb 13.8 13.2 13.3 (13.0-17.0) gm/dL Hct 38.8 L 36.5 L 37.8 L (39.0-51.0) % Plt Count 164 147 L 139 L (150-450) th/mm3 Neut # (Auto) 5.3 3.7 4.0 (1.8-7.7) th/mm3 Lymph # (Auto) 1.5 1.3 1.8 (1.0-4.8) th/mm3 [place] # (Auto) 0.6 0.5 0.6 (0.0-0.9) th/mm3 Eos # (Auto) 0.4 0.4 0.4 (0.0-0.4) th/mm3 Baso # (Auto) 0.0 0.0 0.0 (0.0-0.2) th/mm3 Comprehensive Metabolic Panel 06/11/18 06/12/18 06/13/18 Range/Units 20:35 03:49 03:57 Sodium 141 144 142 (136-145) meq/L Potassium 4.3 3.4 L D 3.4 L (3.5-5.1) meq/L Chloride 110 H 108 H 107 (98-107) meq/L Carbon Dioxide 24.8 29.6 26.4 (21.0-32.0) meq/L BUN 34 H 35 H 34 H (7-18) mg/dL Creatinine 2.03 H 1.97 H 2.08 H (0.60-1.30) mg/dL Calcium 9.4 9.3 8.5 D (8.5-10.1) mg/dL AST 29 24 (15-37) U/L ALT 20 18 (12-78) U/L Alkaline Phosphatase 71 64 (45-117) U/L Total Protein 7.8 7.2 D (6.4-8.2) g/dL Albumin 3.9 3.6 (3.4-5.0) g/dL Intake and Output 06/12/18 06/13/18 06/13/18 22:59 06:59 14:59 Intake Total 480 / 480 240 / 240 Output Total 600 / 600 400 / 400 Balance -120 / -120 -160 / -160 Intake: Oral 480 / 480 240 / 240 Output: Urine 600 / 600 400 / 400 Other: # Voids 3 2 # Incontinent Voids 1 Weight 72.5 kg - Imaging and Cardiology Imaging: Impressions Chest X-Ray 06/11/18 20:33 CONCLUSION: 1. Mild patchy parenchymal opacities in the medial right midlung zone. Cannot exclude developing airspace disease in the appropriate clinical setting. 2. Cardiomegaly. Abdomen/Bladder Ultrasound 06/12/18 00:00 CONCLUSION: 1. Bilateral renal cysts. 2. Irregular wall thickening within the urinary bladder. Cystitis and neoplastic process should be excluded. Assessment and Plan - Assessment (1) NSTEMI (non-ST elevated myocardial infarction) Code(s): I21.4 - Non-ST elevation (NSTEMI) myocardial infarction Status: Acute (2) Renal insufficiency Code(s): N28.9 - Disorder of kidney and ureter, unspecified Status: Acute (3) Lower extremity edema Code(s): R60.0 - Localized edema Status: Acute (4) Hypertension Code(s): I10 - Essential (primary) hypertension Status: Acute (5) Chronic kidney disease (CKD) Code(s): N18.9 - Chronic kidney disease, unspecified Status: Acute (6) CAD (coronary artery disease) Code(s): I25.10 - Atherosclerotic heart disease of [place] coronary artery without angina pectoris Status: Acute - Plan 1) NSTEMI/CAD Plan for PCI of LAD into septal deaf interpreter to help with collaterals to the LCx 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
[2018-06-14 02:04] LABS: Hematocrit 37.3 % (39.0-51.0); Mean Corpuscular HGB Conc 34.9 % (32.0-36.0); Mean Corpuscular Hemoglobin 32.9 pg (27.0-34.0); Mean Corpuscular Volume 94.3 fL (80.0-100.0); Mean Platelet Volume 9.9 fL (7.0-11.0); Platelet Count 144 th/mm3 (150-450); Red Blood Count 3.95 mil/mm3 (4.50-5.90); Red Cell Distribution Width 13.2 % (11.6-17.2); White Blood Count 6.2 th/mm3 (4.0-11.0)
[2018-06-14 02:30] LABS: Calcium 8.2 mg/dL (8.5-10.1); Carbon Dioxide 26.6 meq/L (21.0-32.0); Potassium 3.5 meq/L (3.5-5.1)
[2018-06-14] MEDS: Heparin Drip 25,000 UNIT/250 ML BAG IV.CONT PRN (05:03)
[2018-06-14] MEDS ORDERED: Iohexol 350 MG/ML 100 ML Vial (for Cath Lab) IVCONTRAST ONE (07:34)
[2018-06-14] MEDS: Senna/Docusate Sodium 8.6/50 MG Tablet PO SCH ×2 (08:13→21:16)
[2018-06-14] MEDS: Metoprolol Tartrate 50 MG Tablet PO SCH ×2 (08:13→21:16)
--- NOTE | 2018-06-14 11:33 | P.PNNP ---
Subjective Interval history: Patient is alert, now NPO for cardiac procedure. Physical Exam Vital signs: Vital Signs 06/13/18 13:00 06/13/18 14:00 06/13/18 15:00 Temperature 97.8 F Pulse Rate 56 L 60 72 Respiratory Rate 18 Blood Pressure 127/60 Pulse Oximetry 96 06/13/18 16:00 06/13/18 17:00 06/13/18 18:00 Temperature Pulse Rate 80 78 70 Respiratory Rate Blood Pressure Pulse Oximetry 06/13/18 19:00 06/13/18 20:00 06/13/18 21:00 Temperature 97.8 F Pulse Rate 74 65 70 Respiratory Rate 18 Blood Pressure 127/60 Pulse Oximetry 96 96 06/13/18 21:56 06/13/18 23:00 06/14/18 00:00 Temperature 98.7 F Pulse Rate 67 66 61 Respiratory Rate 18 Blood Pressure 131/58 L Pulse Oximetry 96 06/14/18 00:58 06/14/18 02:00 06/14/18 03:00 Temperature 97.7 F Pulse Rate 64 62 60 Respiratory Rate 18 Blood Pressure 154/67 H Pulse Oximetry 96 06/14/18 03:58 06/14/18 05:00 06/14/18 05:52 Temperature Pulse Rate 62 69 62 Respiratory Rate Blood Pressure Pulse Oximetry 06/14/18 07:00 06/14/18 08:00 06/14/18 08:27 Temperature 97.7 F Pulse Rate 72 Respiratory Rate 18 Blood Pressure 156/70 H Pulse Oximetry 94 L 94 L 95 Intake & Output 06/13/18 06/14/18 06/14/18 18:59 06:59 18:59 Intake Total 480 / 480 490 / 490 Output Total 400 / 400 550 / 550 Balance 80 / 80 -60 / -60 Weight 52 kg Intake: IV 250 / 250 Heparin/D5W 25,000 U/250 mL 25, 250 / 250 000 unit In 250 ml @ 700 UNITS/ HR 7 mls/hr IV.CONT TITRATE PRN Rx#:[id number] Oral 480 / 480 240 / 240 Output: Urine 400 / 400 550 / 550 Other: # Voids 2 Narrative: GENERAL: Alert, oriented x3, NAD. SKIN: Warm and dry. HEAD: Normocephalic. EYES: No scleral icterus. No injection or drainage. NECK: Supple, trachea midline. No JVD or lymphadenopathy. CARDIOVASCULAR: Regular rate and rhythm without murmurs, gallops, or rubs. RESPIRATORY: Breath sounds equal bilaterally. No accessory muscle use. GASTROINTESTINAL: Abdomen soft, non-tender, nondistended. MUSCULOSKELETAL: No cyanosis, No lower ext edema. Right femoral no hematoma, no ecchymosis BACK: Nontender without obvious deformity. No CVA tenderness. Assessment and Plan - Assessment (1) Hypertension Code(s): I10 - Essential (primary) hypertension Status: Acute Qualifiers: Hypertension type: essential hypertension Qualified Code(s): I10 - Essential (primary) hypertension (2) Chronic kidney disease (CKD) Code(s): N18.9 - Chronic kidney disease, unspecified Status: Acute (3) ACS (acute coronary syndrome) Code(s): I24.9 - Acute ischemic heart disease, unspecified Status: Acute (4) Lower extremity edema Code(s): R60.0 - Localized edema Status: Acute - Plan Patient with chronic kidney disease and Hypertension, Has IHD and post CABG, Post Cardiac Cath done yesterday, results noted. Need better BP control. On Metoprolol, and started on Nifedipine. BP is better today. Creatinine is almost same, now 1.9 Encourage oral fluids, follow the urine out put and BMP. Cardiology follow up noted. Going for Cardiac PCI today.
--- NOTE | 2018-06-14 13:54 | P.PN ---
Subjective Interval history: Follow-up for non-STEMI, hypertension, likely CKD. The patient was seen today after PCI. Patient is disappointed is no stent placed and wants to explore further eval in tertiary center Denies any chest pain, shortness of breath, fever or chills. No palpitations. No nausea or vomiting. Was not eating after the procedure. However says he is not hungry. Physical Exam Vital signs: Vital Signs 06/13/18 14:00 06/13/18 15:00 06/13/18 16:00 Temperature 97.8 F Pulse Rate 60 72 80 Respiratory Rate 18 Blood Pressure 127/60 Pulse Oximetry 96 06/13/18 17:00 06/13/18 18:00 06/13/18 19:00 Temperature 97.8 F Pulse Rate 78 70 74 Respiratory Rate 18 Blood Pressure 127/60 Pulse Oximetry 96 06/13/18 20:00 06/13/18 21:00 06/13/18 21:56 Temperature Pulse Rate 65 70 67 Respiratory Rate Blood Pressure Pulse Oximetry 96 06/13/18 23:00 06/14/18 00:00 06/14/18 00:58 Temperature 98.7 F Pulse Rate 66 61 64 Respiratory Rate 18 Blood Pressure 131/58 L Pulse Oximetry 96 06/14/18 02:00 06/14/18 03:00 06/14/18 03:58 Temperature 97.7 F Pulse Rate 62 60 62 Respiratory Rate 18 Blood Pressure 154/67 H Pulse Oximetry 96 06/14/18 05:00 06/14/18 05:52 06/14/18 07:00 Temperature 97.7 F Pulse Rate 69 62 72 Respiratory Rate 18 Blood Pressure 156/70 H Pulse Oximetry 94 L 06/14/18 08:00 06/14/18 08:27 06/14/18 09:00 Temperature Pulse Rate 68 60 Respiratory Rate Blood Pressure Pulse Oximetry 94 L 95 06/14/18 10:00 06/14/18 11:00 06/14/18 12:00 Temperature 97.8 F Pulse Rate 52 L 53 L 54 L Respiratory Rate 18 Blood Pressure 158/68 H Pulse Oximetry 96 Intake & Output 06/13/18 06/14/18 06/14/18 18:59 06:59 18:59 Intake Total 480 / 480 490 / 490 Output Total 400 / 400 550 / 550 Balance 80 / 80 -60 / -60 Weight 52 kg Intake: IV 250 / 250 Heparin/D5W 25,000 U/250 mL 25, 250 / 250 000 unit In 250 ml @ 700 UNITS/ HR 7 mls/hr IV.CONT TITRATE PRN Rx#:[id number] Oral 480 / 480 240 / 240 Output: Urine 400 / 400 550 / 550 Other: # Voids 2 Narrative: GENERAL: Very pleasant 88-year-old male, appearing younger than the stated age, alert, oriented x3, NAD. SKIN: Warm and dry. HEAD: Normocephalic. EYES: No scleral icterus. No injection or drainage. NECK: Supple, trachea midline. No JVD or lymphadenopathy. CARDIOVASCULAR: Regular rate and rhythm without murmurs, gallops, or rubs. RESPIRATORY: Breath sounds equal bilaterally. No accessory muscle use. GASTROINTESTINAL: Abdomen soft, non-tender, nondistended. MUSCULOSKELETAL: No cyanosis. No lower ext edema. Right wrist with hematoma. Right femoral no hematoma, no ecchymosis. BACK: Nontender without obvious deformity. No CVA tenderness. Results - Labs CBC & Chem 7: 06/14/18 01:39 06/14/18 01:39 Laboratory Results - last 24 hr 06/14/18 06/14/18 06/14/18 01:39 01:39 01:39 WBC 6.2 RBC 3.95 L Hgb 13.0 Hct 37.3 L MCV 94.3 MCH 32.9 MCHC 34.9 RDW 13.2 Plt Count 144 L MPV 9.9 APTT 51.7 H D Sodium 142 Potassium 3.5 Chloride 108 H Carbon Dioxide 26.6 Anion Gap 7 BUN 36 H Creatinine 1.99 H Estimated GFR 32 L Random Glucose 104 Calcium 8.2 L 06/14/18 08:31 WBC RBC Hgb Hct MCV MCH MCHC RDW Plt Count MPV APTT 58.9 H Sodium Potassium Chloride Carbon Dioxide Anion Gap BUN Creatinine Estimated GFR Random Glucose Calcium Microbiology 06/13/18 07:00 Stool Stool Occult Blood (JOSE) - Final Hemoccult negative - Procedures Cath 06/12/2018 1. Non-ST elevation myocardial infarction. 2. Coronary artery disease with a history of coronary artery bypass graft x 2 (1/2 grafts patent). 3. Accelerated hypertension. 4. Compensated diastolic heart failure. Assessment and Plan - Assessment (1) ACS (acute coronary syndrome) Code(s): I24.9 - Acute ischemic heart disease, unspecified Status: Acute (2) Renal insufficiency Code(s): N28.9 - Disorder of kidney and ureter, unspecified Status: Acute (3) Lower extremity edema Code(s): R60.0 - Localized edema Status: Acute - Plan Mr. Fuchs is an 88-year-old male with a PMH of CAD s/p CABG 25yrs ago, HTN and CKD who presented to the ER for c/o chest pain and bilateral lower extremity edema x3 wks. he had chest pain that was substernal, moderate worse with exertion., Troponins were 0.03, 0.60, 1.07. Cardiology was consulted. Non-STEMI Coronary artery disease status post CABG 25 years ago Cardiology consulted. Patient is currently on aspirin 81 mg, heparin drip. Cardiac catheterization on 06/12/2018 - S/p complex PCI to stent LAD, unsuccessful on 06/14/18. Continue metoprolol 50 mg p.o. twice daily Patient is currently on atorvastatin 10 mg p.o. will increase atorvastatin to 40 mg. Patient will likely need ARB. Holding ARB due to unknown status of patient's baseline creatinine. Acute kidney injury Possible chronic kidney disease stage III Avoid nephrotoxins. Will avoid REX inhibitor or ARB for now. Creatinine 1.97 --> 2.08 today. Hypertension -BP was in the 170s. Nephrology started Nifedipine 60mg Qday. -BP this morning was 157 systolic. Full code. Heparin drip. Patient wants to explore evaluation of the tertiary center as unsuccessful complex PCI
[2018-06-14] MEDS ORDERED: Heparin/NS PF Inj 1,000 ML ONE (15:45)
[2018-06-14] MEDS ORDERED: Heparin 10,000 UNITS/10 ML Vial (for IV use) ONE (15:46)
[2018-06-14] MEDS ORDERED: fentaNYL Citrate Inj 100 MCG/2 ML Ampul ONE (15:46)
[2018-06-14] MEDS ORDERED: Lidocaine PF 1% Inj 30 ML Vial ONE (15:50)
[2018-06-14] MEDS ORDERED: Misc Info for Pharmacy OTHER STA (17:22)
--- NOTE | 2018-06-14 17:29 | CATHPROC ---
Miner HIS Report Study Information Study Number Admission Scheduled Start Study Start [id number] Jun 11 2018 10:41PM 06/14/2018 Jun 14 2018 3:40PM [place] [facility] Cardiac Catheterization Admit Source Facility Department Other [facility] - [facility] Physician and Clinical Staff Initial Rad Dias Quality Lead Savannah Rodriguez,NAHED Quality LeadFrancy Dodd RN Other Heidy Mejias,ENGINEERING PATTERNMAKER TECH2 Recorder Arcelia Masters,RT(R) Scrub Manpreet Chow,RT(R) Procedures Performed Procedure Location (Site) Vessel Name Coronary Angiograms LCA Left Coronary L Heart Cath PTCA LAD Prox Left Coronary Wire insertion Radial (right) Radial Art. Equipment Time Assistant Foreman Description Size Mfg Part Number Used/Scraped [id number] 16:43 [employer] WIRE, ASAHI GRANDSLAM 180CM 180CM Used *[id number] 16:01 [employer] WIRE, ASAHI PROWATER 180CM 180CM Used *[id number] WIRE, BALANCE MIDDLEWEIGHT [id number] 16:01 [employer] 190CM Used 190CM *[id number] TRANSDUCER, TRUWAVE [id number] 16:11 IRBY MACIAS * Used W/STOCKCOCK *[id number] 16:11 [employer] BLANKET,WARM AIR CCL * Used *[id number] 16:11 [employer] PACK, CCL CUSTOM * Used *[id number] 16:11 [employer] SUPPORT, ARTERIAL ADULT 14992 *[id number] Used [id number] 16:21 [employer] BALLOON, 2.0 X 12MM EUPHORA 12MM Used *[id number] 16:31 [employer] STENT, 2.0 15MM NEHA 2.0 X 15MM Used *[id number] 16:01 [employer]/AVE EBU 3.5 Z2 GUIDE CATHETER FR 6 Used *[id number] 16:26 [employer] 30 CARI INDEFLATOR Used *[id number] BAND, RADIAL COMPRESSION TR [id number] 17:01 [employer] 24CM Used SHORT 24 *[id number] 16:11 [employer] WIRE, EXCHANGE 260CM 3MMJ 260CM Used *[id number] 16:11 [employer]AMIC MANIFOLD, 4 PORT * Used *[id number] 16:11 [employer] OMNIPAQUE, 350 MG, 150ML 150ML [id number] Used SHEATH, FR6 TRANSRADIAL [id number] 16:11 [employer] FR 6 Used SLENDER 10CM *[id number] History: Current Medications Medication Dosage/Unit Route Frequency Last Date/Time Taken HEPARIN ASA Beta Violetta LIPITOR History: Allergies Allergy Reaction No Known Allergies History: Risk Factors Family History of Hypertension Dyslipidemia Previous CA Previous Heart Failure Premature CAD Yes Yes No No Yes Prior Valve Prior PCI Prior CABG Prior CABGDate Surgery No No Yes 07/11/1992 Cerebrovascular Peripheral Artery Chronic Lung On Dialysis Diabetes Disease Disease Disease No No No No No History: Symptoms/Diagnosis Selection Items Chest pain History: CV Disease Selection Items Known CAD History: Stress Tests Stress or Imaging Studies Performed No History: Other Disease Selection Items CAD History: Other Current Smoker No Labs Hgb (g/dl) Hct (%) WBC (l/cumm) Platelets (thousands) 11.60-17.00 35.00-51.00 4.00-11.00 150.00-450.00 13.0 37.3 6.2 144 Glucose (mg/dl) BUN (mg/dl) Creatinine (mg/dl) BUN:Creatinine (1:x) 74.00-106.00 7.00-18.00 0.50-1.30 10.00-20.00 104 36 1.9 18.9 Na (meq/l) K (meq/l) 136.00-145.00 3.50-5.10 142 3.5 INR (PTT:PT) 0.90-1.10 1.1 CPK-MB (ng/ML) 0.50-3.60 Not Drawn Medication Medication Total Dose (Bolus/Oral) Medication Total Dosage/Unit 1% XYLOCAINE 20 mL FENTANYL 25 mcg HEPARIN 2000 units PLAVIX 600 mg RADIAL COCKTAIL 5 mL (Bolus) VERSED 0.5 mg Medications (Bolus/Oral) Medication Time Given Dosage/Unit Administered By Reason 1% XYLOCAINE 06/14/2018 4:08:13 PM 20 mL Rad Persaud 20 mL 1% XYLOCAINE given in lab by Rad Persaud in Right Radial via Subcutaneous. VERSED 06/14/2018 4:08:50 PM 0.5 mg Francy Loza 0.5 mg VERSED given in lab by Francy Loza, RN via Peripheral IV. FENTANYL 06/14/2018 4:09:57 PM 25 mcg Francy Loza 25 mcg FENTANYL given in lab by Francy Loza, NAHED via Peripheral IV. Ntg 200mcg Verapamil 2.5mg Heparin RADIAL COCKTAIL 06/14/2018 4:11:12 PM 5 mL (Bolus) Rad Persaud 2000U 5 mL (Bolus) RADIAL COCKTAIL given in lab by Rad Persaud via Radial. Using [Solution Name]. R flash: Ntg 200mcg Verapamil 2.5mg Heparin 2000U. HEPARIN 06/14/2018 4:18:32 PM 2000 units Francy Loza 2000 units HEPARIN given in lab by Francy Loza, NAHED via Peripheral IV. PLAVIX 06/14/2018 5:08:14 PM 600 mg Francy Loza 600 mg PLAVIX given in lab by Francy Loza, NAHED via Oral. Medication (Drip) Medication Time Given Dosage/Unit Concentration/Unit Diluent (ml) Solution HEPARIN DRIP STOPPED 06/14/2018 3:35:34 PM 0 units/hr 0 Patient arrived on 0 units/hr HEPARIN DRIP STOPPED. Pump/Drip Flow = 0 ml/hr using [Solution Name]. IV Solutions 06/14/2018 3:40:01 PM 0 mL (IV) 500 NaCl .9 IV Solutions given in lab by Savannah Rodriguez RN in Right Forearm via Peripheral IV. Pump/Drip Flow = 20 ml/hr using NaCl .9. Initial Case Assessment Cardiovascular HR Rhythm 76 irreg Edema Present Skin color Skin None Normal Warm Circulatory - Right Pulses Dorsalis Pedis Femoral Radial 1 2 2 Scale (0,1,2,3,4,d) Scale (0,1,2,3,4,d) Circulatory - Lower Extremities Color Lower Right Normal Neurological State Oriented to time-place- Alert Moves all extremities person Respiration - General Respiration Rate SpO2 (%) (B/min) 8 97 Chronological Log Time Study Chronological Log 15:35:34 Patient arrived on 0 units/hr HEPARIN DRIP STOPPED. Pump/Drip Flow = 0 ml/hr using [Solutio n Name]. 15:39:49 Patient arrived via Bed. 15:39:50 Patient Name, D.O.B, / Armband Verified By R.N. 15:39:51 Consent signed by the physician and the patient and verified by the [employer] [employer] staff. 15:39:52 Pre-op and post- op instructions given; patient acknowledges understanding of instructions. 15:39:53 Verbal Stimulation=2 Physical Stimulation=2 Airway=2 Respiration=2 TOTAL=8. (0=absent, 1=li mited, 2=present) 15:39:56 Allens test performed on the right radial and ulnar artery. 15:39:58 Patient has been NPO for Less than 6Hrs. 15:39:59 Skin Breakdown-none 15:40:00 A # 20 IV was noted in the Forearm (right). Grade = 0 IV Solutions given in lab by Savannah Rodriguez RN in Right Forearm via Peripheral IV. Pump/Drip Flow = 20 ml/hr using 15:40:01 NaCl .9. 15:40:03 History and physical on the chart or being dictated. Assessment: Initial Case, HR=76 BPM, Rhythm=irreg, Edema=None, Color=Normal, Skin = Warm Right Pulses: Jed Ped=1, Femoral=2, Radial=2 15:40:04 Lower Right Extremities: Color=Normal Neurological: State=Alert, Ox3, QUIÑONEZ Respiration: Resp=8 B/min, SpO2=97 % 15:40:05 Bilateral groins prepped with 2% chlorhexidine, and draped after a 3 minute waiting time. Vitals capture started with the following parameters, Patient=Adult, Interval=5 min, Initial Pr ndcedf=046 mmHg, 15:44:30 Deflation Rate=5 mmHg, Cuff placed on Left Arm 15:44:44 Reference ECG taken 15:45:10 HR=92 bpm, SHYJ=008/73 mmhg, SpO2=95.0 %, Resp=19 B/min, Pain=0, Faye=10, Jackson=2 15:50:15 HR=85 bpm, NZWT=663/60 mmhg, SpO2=95.0 %, Resp=15 B/min, Pain=0, Faye=10, Jackson=2 15:55:10 HR=77 bpm, IVSL=305/75 mmhg, SpO2=96.0 %, Resp=15 B/min, Pain=0, Faye=10, Jackson=2 15:59:30 Pressure channel 1 zeroed. 16:00:13 HR=77 bpm, CEST=508/67 mmhg, SpO2=98.0 %, Resp=18 B/min, Pain=0, Faye=10, Jackson=2 16:01:12 MD arrived. 16:05:10 HR=75 bpm, HXKB=084/68 mmhg, SpO2=96.0 %, Resp=8 B/min, Pain=0, Faye=10, Jackson=2 Time Out. Correct patient, correct procedure, correct physician, labs, allergies, and equipment verified with cork slabs sawyer 16:07:52 team present. Fire risk assesment completed (see hard stop sheet for coding). Time Out Conc urred by MD and individual staff in procedure. 16:08:04 Case Start 16:08:06 Verbal Stimulation=2 Physical Stimulation=2 Airway=2 Respiration=2 TOTAL=8. (0=absent, 1=li mited, 2=present) 16:08:13 20 mL 1% XYLOCAINE given in lab by Rad Persaud in Right Radial via Subcutaneous. 16:08:50 0.5 mg VERSED given in lab by Francy Loza, NAHED via Peripheral IV. 16:09:57 25 mcg FENTANYL given in lab by Francy Loza, NAHED via Peripheral IV. 16:10:14 HR=76 bpm, RVMH=728/69 mmhg, SpO2=97.0 %, Resp=13 B/min, Pain=0, Faye=10, Jackson=2 16:10:26 Access site was Right Radial Artery . 16:10:32 A wire was inserted via Radial (right). A SHEATH, FR6 TRANSRADIAL SLENDER 10CM FR 6 was advanced into the Radial (right) using the Perc utaneous 16:10:43 technique. 5 mL (Bolus) RADIAL COCKTAIL given in lab by Rad Persaud via Radial. Using [Solution Na me]. Reason: Ntg 16:11:12 200mcg Verapamil 2.5mg Heparin 2000U. A EBU 3.5 Z2 GUIDE CATHETER FR 6 was advanced over a wire. OMNIPAQUE, 350 MG, 150ML 150ML was u sed for 16:11:46 injections. 16:15:11 HR=78 bpm, NIBP=96/62 mmhg, SpO2=95.0 %, Resp=16 B/min, Pain=0, Faye=10, Jackson=2 Recorded Pressure: Ao, HR=80, Condition=Condition 1 16:15:12 (Aorta) Ao 101/46/70 16:17:05 The LCA was injected and visualized at various angles. OMNIPAQUE, 350 MG, 150ML 150ML used . 16:18:32 2000 units HEPARIN given in lab by Francy Loza, NAHED via Peripheral IV. 16:20:01 HR=70 bpm, JPVD=844/65 mmhg, SpO2=92.0 %, Resp=15 B/min, Pain=0, Faye=10, Jackson=2 16:20:21 A WIRE, BALANCE MIDDLEWEIGHT 190CM 190CM was inserted via Radial (right). 16:23:59 Activated Clotting Time Drawn 16:25:07 HR=68 bpm, RMKT=160/62 mmhg, SpO2=93.0 %, Resp=7 B/min, Pain=0, Faye=10, Jackson=2 A BALLOON, 2.0 X 12MM EUPHORA 12MM was inserted over WIRE, BALANCE MIDDLEWEIGHT 190CM 190CM via the 16:25:40 LAD Prox. A BALLOON, 2.0 X 12MM EUPHORA 12MM over a WIRE, BALANCE MIDDLEWEIGHT 190CM 190CM in the LAD Pro x was 16:25:58 inflated using a 30 CARI INDEFLATOR at 10 cari for 20 sec. A BALLOON, 2.0 X 12MM EUPHORA 12MM over a WIRE, BALANCE MIDDLEWEIGHT 190CM 190CM in the LAD Pro x was 16:26:39 inflated using a 30 CARI INDEFLATOR at 12 cari for 12 sec. A BALLOON, 2.0 X 12MM EUPHORA 12MM over a WIRE, BALANCE MIDDLEWEIGHT 190CM 190CM in the LAD Pro x was 16:27:10 inflated using a 30 CARI INDEFLATOR at 10 cari for 10 sec. 16:28:46 The LCA was injected and visualized at various angles. OMNIPAQUE, 350 MG, 150ML 150ML used . 16:30:02 ACT (Normal Range 90-180) = 323 16:30:08 HR=68 bpm, HVTZ=395/66 mmhg, SpO2=96.0 %, Resp=3 B/min, Pain=0, Faye=10, Jackson=2 16:30:09 Balloon Removed. A STENT, 2.0 15MM NEHA 2.0 X 15MM was advanced through a EBU 3.5 Z2 GUIDE CATHETER FR 6 over a WIRE, 16:31:23 BALANCE MIDDLEWEIGHT 190CM 190CM. 16:33:56 Stent not deployed. Stent removed and intact. 16:34:26 Wire removed 16:35:11 HR=72 bpm, EAFK=819/58 mmhg, SpO2=96.0 %, Resp=5 B/min, Pain=0, Faye=10, Jackson=2 16:36:32 A WIRE, ASAHI PROWATER 180CM 180CM was inserted via Radial (right). A STENT, 2.0 15MM NEHA 2.0 X 15MM was advanced through a EBU 3.5 Z2 GUIDE CATHETER FR 6 over a WIRE, 16:38:45 BALANCE MIDDLEWEIGHT 190CM 190CM. 16:40:08 HR=76 bpm, SVBJ=112/73 mmhg, SpO2=96.0 %, Resp=7 B/min, Pain=0, Faye=10, Jackson=2 16:40:56 Stent not deployed. Stent removed and intact. Recorded Pressure: LV, HR=78, Condition=Condition 1 16:42:21 (Left Ventricle) LV 139/-2/1 Recorded Pressure: LV, Ao, HR=87, Condition=Condition 1 16:42:30 (Left Ventricle) LV 134/4/4, (Aorta) Ao 148/50/97 16:45:11 HR=71 bpm, OZJK=280/72 mmhg, SpO2=97.0 %, Resp=7 B/min, Pain=0, Faye=10, Jackson=2 16:45:41 A WIRE, ASAHI GRANDSLAM 180CM 180CM was inserted via Radial (right). 16:48:45 Wire removed 16:50:10 HR=65 bpm, NBWT=424/66 mmhg, SpO2=97.0 %, Resp=22 B/min, Pain=0, Faye=10, Jackson=2 16:50:46 A WIRE, BALANCE MIDDLEWEIGHT 190CM 190CM was inserted via Radial (right). 16:54:06 Wire removed 16:54:12 A WIRE, ASAHI PROWATER 180CM 180CM was inserted via Radial (right). 16:55:13 HR=69 bpm, NKAQ=638/64 mmhg, SpO2=96.0 %, Resp=6 B/min, Pain=0, Faye=10, Jackson=2 16:56:32 Wire removed 16:56:52 A WIRE, EXCHANGE 260CM 3MMJ 260CM was inserted via Radial (right). 16:59:16 Wire removed 17:00:10 HR=68 bpm, UGEL=254/72 mmhg, SpO2=97.0 %, Resp=8 B/min, Pain=0, Faye=10, Jackson=2 17:01:03 A WIRE, EXCHANGE 260CM 3MMJ 260CM was inserted via Radial (right). 17:01:34 Catheter was removed 17:01:35 Wire removed 17:01:54 Case End (Physician broke scrub) 17:04:21 Catheter(s) removed without difficulty Radial Compression Device Used. 10 mLs of air placed in BAND, RADIAL COMPRESSION TR SHORT 24 24 CM. Affected 17:04:23 hand 98 % O2 saturation. 17:04:34 No case complications noted. 17:04:37 Bedside Report will be given. 17:04:41 A Left Heart Cath was performed. 17:05:13 HR=84 bpm, ZCMD=007/66 mmhg, SpO2=96.0 %, Resp=10 B/min, Pain=0, Faye=10, Jackson=2 17:08:14 600 mg PLAVIX given in lab by Francy Loza, NAHED via Oral. 17:09:43 Vitals capture stopped. 17:29:11 Patient moved to [facility] End Study - Contrast Media Used In Study Contrast Total Opened (mL) Total Used (mL) Total Wasted (mL) Omnipaque 350 55 55 0 End Study - Maximum Contrast Load Max Contrast Load (mL) 136.8 End Study - Radiation Exposure Fluoro Time (minutes) 19.9 End Study - Sheaths Sheaths Pulled By Sheath Hold Time (min) Manpreet Chow End Study - Patient Disposition Complications Transferred To Interventional Outcome No Telemetry Bed a partial success
--- NOTE | 2018-06-15 00:22 | P.PNCA ---
Subjective Interval history: Post cath, no complaints Able to POBA the LAD into the septal but unable to pass a stent Medications and Allergies Active Medications: Active Medications Acetaminophen (Tylenol) 650 mg PO Q4H PRN PRN Reason: Temp > 100.4 Al Hydroxide/Mg Hydroxide (Milk Of Magnesia Liq) 30 ml PO Q12H PRN PRN Reason: Mild Constipation Aspirin (Ecotrin) 81 mg PO DAILY [facility] Last Admin: 06/14/18 08:13 Dose: 81 mg Atorvastatin Calcium (Lipitor) 40 mg PO DAILY [facility] Last Admin: 06/14/18 08:14 Dose: 40 mg Bisacodyl (Dulcolax Supp) 10 mg RECTAL DAILY PRN PRN Reason: SEVERE CONSITIPATION Clopidogrel Bisulfate (Plavix) 75 mg PO DAILY [facility] Sodium Chloride (Ns Inj) 1,000 mls @ 84 mls/hr IV.CONT .[id number] [facility] Lactulose (Lactulose Liq) 30 ml PO DAILY PRN PRN Reason: SEVERE CONSITIPATION Metoprolol Tartrate (Lopressor) 50 mg PO BID [facility] Last Admin: 06/14/18 21:16 Dose: 50 mg Morphine Sulfate (Morphine Inj) 2 mg IV.PUSH Q4H PRN PRN Reason: PAIN 6-10 Nifedipine (Procardia Xl) 60 mg PO DAILY [facility] Last Admin: 06/14/18 08:13 Dose: 60 mg Nitroglycerin (Nitro-Bid 2% Oint) 0.5 inch TOPICAL Q6HR PRN PRN Reason: CHEST PAIN Ondansetron HCl (Zofran Inj) 4 mg IV.PUSH Q6H PRN PRN Reason: NAUSEA OR VOMITING Senna/Docusate Sodium (Cornelia-Colace) 1 tab PO BID [facility] Last Admin: 06/14/18 21:16 Dose: 1 tab Sennosides (Senokot) 17.2 mg PO Q12H PRN PRN Reason: Moderate Constipation Sodium Chloride (Ns Flush) 2 ml IV.FLUSH BID [facility] Last Admin: 06/14/18 21:16 Dose: 2 ml Sodium Chloride (Ns Flush) 2 ml IV.FLUSH PRN PRN PRN Reason: FLUSH AFTER USING IV ACCESS Sodium Chloride (Ns Flush) 2 ml IV.FLUSH BID [facility] Last Admin: 06/14/18 21:17 Dose: Not Given Sodium Chloride (Ns Flush) 2 ml IV.FLUSH PRN PRN PRN Reason: FLUSH AFTER USING IV ACCESS Allergies Allergy/AdvReac Type Severity Reaction Status Date / Time No Known Allergies Allergy Verified 06/11/18 20:23 Home Medications Medication Instructions Recorded Confirmed Type amlodipine 5 mg PO DAILY 06/11/18 06/11/18 History aspirin [Aspir-81] 81 mg PO DAILY 06/11/18 06/11/18 History atorvastatin 10 mg PO DAILY 06/11/18 06/11/18 History cholecalciferol (vitamin D3) 2,000 unit PO DAILY 06/11/18 06/11/18 History [Vitamin D3] losartan 100 mg PO DAILY 06/11/18 06/11/18 History metoprolol tartrate 50 mg PO BID 06/11/18 06/11/18 History Physical Exam Vital signs: Vital Signs 06/14/18 00:58 06/14/18 02:00 06/14/18 03:00 Temperature 97.7 F Pulse Rate 64 62 60 Respiratory Rate 18 Blood Pressure 154/67 H Pulse Oximetry 96 06/14/18 03:58 06/14/18 05:00 06/14/18 05:52 Temperature Pulse Rate 62 69 62 Respiratory Rate Blood Pressure Pulse Oximetry 06/14/18 07:00 06/14/18 08:00 06/14/18 08:27 Temperature 97.7 F Pulse Rate 72 68 Respiratory Rate 18 Blood Pressure 156/70 H Pulse Oximetry 94 L 94 L 95 06/14/18 09:00 06/14/18 10:00 06/14/18 11:00 Temperature 97.8 F Pulse Rate 60 52 L 53 L Respiratory Rate 18 Blood Pressure 158/68 H Pulse Oximetry 96 06/14/18 12:00 06/14/18 13:00 06/14/18 14:00 Temperature Pulse Rate 54 L 64 62 Respiratory Rate Blood Pressure Pulse Oximetry 06/14/18 15:00 06/14/18 17:23 06/14/18 18:00 Temperature 97.8 F Pulse Rate 77 70 Respiratory Rate 18 Blood Pressure 163/72 H 170/79 H Pulse Oximetry 94 L 06/14/18 18:08 06/14/18 19:00 06/14/18 20:00 Temperature 97.6 F Pulse Rate 88 116 H Respiratory Rate 18 Blood Pressure 155/74 H 125/59 L Pulse Oximetry 97 06/14/18 21:00 06/14/18 22:00 Temperature Pulse Rate 82 82 Respiratory Rate Blood Pressure Pulse Oximetry Intake & Output 06/14/18 06/14/18 06/15/18 06:59 18:59 06:59 Intake Total 490 / 490 640 / 640 Output Total 550 / 550 600 / 600 Balance -60 / -60 40 / 40 Weight 52 kg Intake: IV 250 / 250 10 / 10 Heparin/NS PF Inj 1,000 ML @ 0 10 / 10 mls/hr .ROUTE .[facility] Rx#: [id number] Heparin/D5W 25,000 U/250 mL 25, 250 / 250 000 unit In 250 ml @ 700 UNITS/ HR 7 mls/hr IV.CONT TITRATE PRN Rx#:[id number] Oral 240 / 240 480 / 480 Anesthesia Amount 150 / 150 Output: Urine 550 / 550 600 / 600 Other: # Voids 3 Narrative: GENERAL: Very pleasant 88-year-old male, appearing younger than the stated age, alert, oriented x3, NAD. SKIN: Warm and dry. HEAD: Normocephalic. EYES: No scleral icterus. No injection or drainage. NECK: Supple, trachea midline. No JVD or lymphadenopathy. CARDIOVASCULAR: Regular rate and rhythm without murmurs, gallops, or rubs. RESPIRATORY: Breath sounds equal bilaterally. No accessory muscle use. GASTROINTESTINAL: Abdomen soft, non-tender, nondistended. MUSCULOSKELETAL: No cyanosis. No lower ext edema. Right wrist with hematoma. Right femoral no hematoma, no ecchymosis. BACK: Nontender without obvious deformity. No CVA tenderness. Results 06/14/18 01:39 06/14/18 01:39 Coagulation 06/13/18 06/13/18 06/14/18 Range/Units 03:57 09:40 01:39 APTT 44.3 H D 29.0 D 51.7 H D (23.4-31.7) sec 06/14/18 Range/Units 08:31 APTT 58.9 H (23.4-31.7) sec CBC 06/13/18 06/14/18 Range/Units 03:57 01:39 WBC 6.9 6.2 (4.0-11.0) th/mm3 RBC 3.98 L 3.95 L (4.50-5.90) mil/mm3 Hgb 13.3 13.0 (13.0-17.0) gm/dL Hct 37.8 L 37.3 L (39.0-51.0) % Plt Count 139 L 144 L (150-450) th/mm3 Neut # (Auto) 4.0 (1.8-7.7) th/mm3 Lymph # (Auto) 1.8 (1.0-4.8) th/mm3 Stewart # (Auto) 0.6 (0.0-0.9) th/mm3 Eos # (Auto) 0.4 (0.0-0.4) th/mm3 Baso # (Auto) 0.0 (0.0-0.2) th/mm3 Comprehensive Metabolic Panel 06/13/18 06/14/18 Range/Units 03:57 01:39 Sodium 142 142 (136-145) meq/L Potassium 3.4 L 3.5 (3.5-5.1) meq/L Chloride 107 108 H (98-107) meq/L Carbon Dioxide 26.4 26.6 (21.0-32.0) meq/L BUN 34 H 36 H (7-18) mg/dL Creatinine 2.08 H 1.99 H (0.60-1.30) mg/dL Calcium 8.5 D 8.2 L (8.5-10.1) mg/dL Intake and Output 06/14/18 06/14/18 06/15/18 14:59 22:59 06:59 Intake Total 640 / 640 Output Total 600 / 600 Balance 40 / 40 Intake: IV 10 / 10 Heparin/NS PF Inj 1,000 ML @ 0 10 / 10 mls/hr .ROUTE .[facility] Rx#: [id number] Oral 480 / 480 Anesthesia Amount 150 / 150 Output: Urine 600 / 600 Other: # Voids 3 Assessment and Plan - Assessment (1) NSTEMI (non-ST elevated myocardial infarction) Code(s): I21.4 - Non-ST elevation (NSTEMI) myocardial infarction Status: Acute (2) Renal insufficiency Code(s): N28.9 - Disorder of kidney and ureter, unspecified Status: Acute (3) Lower extremity edema Code(s): R60.0 - Localized edema Status: Acute (4) Hypertension Code(s): I10 - Essential (primary) hypertension Status: Acute (5) Chronic kidney disease (CKD) Code(s): N18.9 - Chronic kidney disease, unspecified Status: Acute (6) CAD (coronary artery disease) Code(s): I25.10 - Atherosclerotic heart disease of [place] coronary artery without angina pectoris Status: Acute - Plan 1) NSTEMI/CAD POBA of LAD into septal Added Plavix Continue medical management/blood pressure control If stable tomorrow, DC home with follow up with me Further angina, then will consider repeat attempt at stenting from femoral standpoint 2) Watch creatinine 3) Blood pressure control Nifedipine added, blood pressure better (4) Hypertension Qualifiers: Hypertension type: essential hypertension Qualified Code(s): I10 - Essential (primary) hypertension
[2018-06-15 05:44] LABS: Hematocrit 37.4 % (39.0-51.0); Hemoglobin 12.9 gm/dL (13.0-17.0); Mean Corpuscular HGB Conc 34.6 % (32.0-36.0); Mean Corpuscular Hemoglobin 32.8 pg (27.0-34.0); Mean Platelet Volume 9.4 fL (7.0-11.0); Platelet Count 142 th/mm3 (150-450); Red Blood Count 3.94 mil/mm3 (4.50-5.90); White Blood Count 5.6 th/mm3 (4.0-11.0)
[2018-06-15 06:08] LABS: Calcium 8.3 mg/dL (8.5-10.1); Carbon Dioxide 22.5 meq/L (21.0-32.0); Potassium 3.6 meq/L (3.5-5.1)
--- NOTE | 2018-06-15 06:29 | MA ---
cc: Rad Persaud DO DATE: 06/14/2018 PROCEDURE: Left heart catheterization, coronary angiogram, moderate sedation 60 minutes, balloon angioplasty of LAD into the 1st septal. PREOPERATIVE DIAGNOSES: Fpr-RO-ksofdhiwz myocardial infarction, coronary artery disease with a history of coronary artery bypass graft x 2 (1/2 grafts patent). POSTPROCEDURE DIAGNOSES: Hypertensive urgency, ciq-SX-ptyodsufu myocardial infarction status post balloon angioplasty of LAD into 1st septal insurance inspector. MEDICATIONS: Versed 0.5 mg, fentanyl 25 mcg, verapamil 2.5 mg, nitroglycerine 200 mcg, heparin 4000 units, Plavix 600 mg. CONTRAST USED: 55 mL. FLUOROSCOPY: 19.9 minutes. MODERATE SEDATION: 60 minutes. FRAILTY SCORE: 5. ESTIMATED BLOOD LOSS: 10 mL. PROCEDURAL SUMMARY: Martín Fuchs is a pleasant 88-year-old male who sees my partner, Dr. Montes De Oca, in the office and presented due to unstable angina. He was found to have an elevated troponin and previously underwent cardiac catheterization on 06/12/2018. Due to his elevated troponin and complex coronary artery disease, I felt that the best option would be to attempt PCI of the LAD into the 1st septal which does supply collaterals to the left circumflex. This area is obviously viable and less likely ischemic as on echocardiogram there still appears to be in normal wall motion. Risks, benefits, and alternatives were explained to him and he consented as such. He was brought to the lab and prepped in the usual sterile fashion. The right radial artery was accessed using modified Seldinger technique and placement of a 5/6 [place] slender sheath. This was easily aspirated and flushed. An EBU 3.5 guide was engaged in the left main. Heparin was given as an anticoagulant. A BMW wire was advanced into the distal septal insurance inspector. A compliant balloon (2 x 12) was used to predilate the lesion. At that time, I attempted to place an [place] drug-eluting stent (2 x 15), but was unable to. The wire was lost and so wire was exchanged out for a [place] wire. Once again, I was unable to place the stent. Lastly, a Grand Slam was then advanced, and I was still unable to place the stent. As there is disease of the left main, which is overall short, I was unable to use a GuideLiner or have any other support. At this time, I felt that further attempts at intervention may cause more problems and so a final angiogram was done showing no disruption of the coronary artery disease. The patient was without chest pain and hemodynamically stable. Guide was removed. Radial band was placed over the arteriotomy site for hemostasis. The patient was loaded with 600 mg of Plavix. He left the labor expediter cardiovascularly stable. FINDINGS: LEFT MAIN: 30% disease. LAD: Moderate size vessel with 70% disease in the proximal portion. Mid portion was 100% occluded. It gives off 1 major septal which supplies collaterals to the left circumflex. It also gives off 1 diagonal which is overall small in nature. LEFT CIRCUMFLEX: 100% occluded ostially. LVEDP: 4. IMPRESSION: 1. Non-ST elevation myocardial infarction. 2. Hypertensive urgency. 3. Coronary artery disease with history of coronary artery bypass graft x 2 (1/2 grafts are patent). RECOMMENDATIONS: 1. Mr. Fuchs underwent balloon angioplasty of his LAD into the septal insurance inspector. I was unable to place a stent. 2. He will be recommended continued medical management with aspirin and Plavix and blood pressure control. 3. Ultimately, if he has further chest pain, then consideration could be made for repeat attempt at this from a femoral standpoint for better guide support. 4. Unfortunately, very few options are left to try to help intervene on his coronary anatomy. The only collaterals I see which are helping to the left circumflex are through the septal insurance inspector and complex COFFEE BLENDER through the septal insurance inspector would then impede back on the left main. Ultimately, complex COFFEE BLENDER probably would not have much benefit as the obtuse marginal appears to be occluded with no collaterals to it. 5. Overall, I think the biggest thing for him is blood pressure control, which has been better since being placed on nifedipine. 6. We will watch his kidney function in the morning. If stable in the morning, plan for discharge home. Thank you for allowing me to see Martín Fuchs. If there are any questions, please do not hesitate to call. DO DARLENE Iglesias/radha , 01:22 AM , 01:36 AM
[2018-06-15 09:30] VITALS: RESP 17
[2018-06-15] MEDS: Metoprolol Tartrate 50 MG Tablet PO SCH (09:32)
[2018-06-15] MEDS: Senna/Docusate Sodium 8.6/50 MG Tablet PO SCH (09:37)
--- NOTE | 2018-06-15 09:56 | P.PNIM ---
Subjective Interval history: This is an 88-year-old male with a PMH of CAD s/p CABG 25yrs ago, HTN and CKD who presented to the ER for c/o chest pain and bilateral lower extremity edema x3 wks. Notes chest pain is substernal, moderate, 6/10, worse w/ exertion/ ambulation, symptoms have gotten progressively worse over the last 1wk. Now w/ bilateral lower extremity edema. Follows w/ Dr. Montes De Oca as outpatient, no recent changes to medications. Also notes h/o CKD, baseline creatinine unknown but reports being told it is elevated, has upcoming appt w/ Economic Development Specialist on . On arrival, BP 189/78, HR 59, O2 sat 98% on RA, Afebrile. CBC unremarkable. INR 1.1. Creatinine 2.03, no previous labs for comparison. BNP 247. Troponin 0 0.03 per CXR with patchy parenchymal opacities medial right midlung zone, possible airspace disease, cardiomegaly. S/p Lasix in ER. Currently chest pain free. Dr. Rosales consulted, plan for cath in am. Currently on Heparin gtt. 12-3 Follow-up for non-STEMI. Patient is currently doing well. He denies any chest pain, shortness of breath, fever or chills. 12-4 Follow-up for non-STEMI, hypertension, likely CKD. Patient is currently doing well. Denies any chest pain, shortness of breath, fever or chills. He ambulated in the room and did not have any further chest pain. 12-5 Follow-up for non-STEMI, hypertension, likely CKD. The patient was seen today after PCI. Patient is disappointed is no stent placed and wants to explore further eval in tertiary center Denies any chest pain, shortness of breath, fever or chills. No palpitations. No nausea or vomiting. Was not eating after the procedure. However says he is not hungry. 12-6 has been cleared by CARDIOLOGY FOR DISCHARGE DC TO HOME TODAY DENIES ANY SOB, OR CHEST PAIN AT THIS TIME WANTS TO GO HOME DW RN AND PT AND FAMILY Physical Exam Vital signs: Vital Signs 06/14/18 10:00 06/14/18 11:00 06/14/18 12:00 Temperature 97.8 F Pulse Rate 52 L 53 L 54 L Respiratory Rate 18 Blood Pressure 158/68 H Pulse Oximetry 96 06/14/18 13:00 06/14/18 14:00 06/14/18 15:00 Temperature 97.8 F Pulse Rate 64 62 77 Respiratory Rate 18 Blood Pressure 163/72 H Pulse Oximetry 94 L 06/14/18 17:23 06/14/18 18:00 06/14/18 18:08 Temperature Pulse Rate 70 Respiratory Rate Blood Pressure 170/79 H 155/74 H Pulse Oximetry 06/14/18 19:00 06/14/18 20:00 06/14/18 21:00 Temperature 97.6 F Pulse Rate 88 116 H 82 Respiratory Rate 18 Blood Pressure 125/59 L Pulse Oximetry 97 06/14/18 22:00 06/14/18 23:00 06/15/18 00:00 Temperature 97.6 F Pulse Rate 82 63 86 Respiratory Rate 18 16 Blood Pressure 130/59 L Pulse Oximetry 97 06/15/18 01:00 06/15/18 02:00 06/15/18 03:00 Temperature 97.8 F Pulse Rate 64 120 H 61 Respiratory Rate 18 Blood Pressure 130/60 Pulse Oximetry 97 06/15/18 04:00 06/15/18 05:00 06/15/18 07:00 Temperature Pulse Rate 64 64 72 Respiratory Rate 16 Blood Pressure Pulse Oximetry 06/15/18 08:00 06/15/18 09:00 06/15/18 09:22 Temperature Pulse Rate 104 H 82 Respiratory Rate Blood Pressure Pulse Oximetry 97 06/15/18 09:29 Temperature 97.9 F Pulse Rate 81 Respiratory Rate 17 Blood Pressure 165/69 H Pulse Oximetry 96 Intake & Output 06/14/18 06/15/18 06/15/18 18:59 06:59 18:59 Intake Total 640 / 640 240 / 240 Output Total 600 / 600 0 / 0 Balance 40 / 40 240 / 240 Weight 55 kg Intake: IV 10 / 10 Heparin/NS PF Inj 1,000 ML @ 0 10 / 10 mls/hr .ROUTE [facility] Rx#: [id number] Oral 480 / 480 240 / 240 Anesthesia Amount 150 / 150 Output: Urine 600 / 600 Stool 0 / 0 Other: # Voids 3 3 Date of Last Bowel Movement 06/15/18 Narrative: GENERAL: Very pleasant 88-year-old male, appearing younger than the stated age, alert, oriented x3, NAD. SKIN: Warm and dry. HEAD: Normocephalic. EYES: No scleral icterus. No injection or drainage. NECK: Supple, trachea midline. No JVD or lymphadenopathy. CARDIOVASCULAR: Regular rate and rhythm without murmurs, gallops, or rubs. RESPIRATORY: Breath sounds equal bilaterally. No accessory muscle use. GASTROINTESTINAL: Abdomen soft, non-tender, nondistended. MUSCULOSKELETAL: No cyanosis. No lower ext edema. Right wrist with hematoma. Right femoral no hematoma, no ecchymosis. BACK: Nontender without obvious deformity. No CVA tenderness. Results - Labs CBC & Chem 7: 06/15/18 04:58 06/15/18 04:58 Laboratory Results - last 24 hr 06/15/18 06/15/18 04:58 04:58 WBC 5.6 RBC 3.94 L Hgb 12.9 L Hct 37.4 L MCV 95.0 MCH 32.8 MCHC 34.6 RDW 13.0 Plt Count 142 L MPV 9.4 Sodium 144 Potassium 3.6 Chloride 111 H Carbon Dioxide 22.5 Anion Gap 11 BUN 32 H Creatinine 1.90 H Estimated GFR 34 L Random Glucose 88 Calcium 8.3 L - Imaging ITS Impressions Chest X-Ray 06/11/18 20:33 CONCLUSION: 1. Mild patchy parenchymal opacities in the medial right midlung zone. Cannot exclude developing airspace disease in the appropriate clinical setting. 2. Cardiomegaly. Abdomen/Bladder Ultrasound 06/12/18 00:00 CONCLUSION: 1. Bilateral renal cysts. 2. Irregular wall thickening within the urinary bladder. Cystitis and neoplastic process should be excluded. - Procedures Cath 06/12/2018 1. Non-ST elevation myocardial infarction. 2. Coronary artery disease with a history of coronary artery bypass graft x 2 (1/2 grafts patent). 3. Accelerated hypertension. 4. Compensated diastolic heart failure. --- 06/14/2018 PROCEDURE: Left heart catheterization, coronary angiogram, moderate sedation 60 minutes, balloon angioplasty of LAD into the 1st septal. PREOPERATIVE DIAGNOSES: [id number]-[id number] myocardial infarction, coronary artery disease with a history of coronary artery bypass graft x 2 (1/2 grafts patent). POSTPROCEDURE DIAGNOSES: Hypertensive urgency, [id number] myocardial infarction status post balloon angioplasty of LAD into 1st septal finishing supervisor plastic sheets. MEDICATIONS: Versed 0.5 mg, fentanyl 25 mcg, verapamil 2.5 mg, nitroglycerine 200 mcg, heparin 4000 units, Plavix 600 mg. CONTRAST USED: 55 mL. FLUOROSCOPY: 19.9 minutes. MODERATE SEDATION: 60 minutes. FRAILTY SCORE: 5. ESTIMATED BLOOD LOSS: 10 mL. PROCEDURAL SUMMARY: Martín Fuchs is a pleasant 88-year-old male who sees my partner, Dr. Montes De Oca, in the office and presented due to unstable angina. He was found to have an elevated troponin and previously underwent cardiac catheterization on 06/12/2018. Due to his elevated troponin and complex coronary artery disease, I felt that the best option would be to attempt PCI of the LAD into the 1st septal which does supply collaterals to the left circumflex. This area is obviously viable and less likely ischemic as on echocardiogram there still appears to be in normal wall motion. Risks, benefits, and alternatives were explained to him and he consented as such. He was brought to the lab and prepped in the usual sterile fashion. The right radial artery was accessed using modified Seldinger technique and placement of a 5/6 [place] slender sheath. This was easily aspirated and flushed. An EBU 3.5 guide was engaged in the left main. Heparin was given as an anticoagulant. A BMW wire was advanced into the distal septal finishing supervisor plastic sheets. A compliant balloon (2 x 12) was used to predilate the lesion. At that time, I attempted to place an [place] drug-eluting stent (2 x 15), but was unable to. The wire was lost and so wire was exchanged out for a [place] wire. Once again, I was unable to place the stent. Lastly, a Grand Slam was then advanced, and I was still unable to place the stent. As there is disease of the left main, which is overall short, I was unable to use a GuideLiner or have any other support. At this time, I felt that further attempts at intervention may cause more problems and so a final angiogram was done showing no disruption of the coronary artery disease. The patient was without chest pain and hemodynamically stable. Guide was removed. Radial band was placed over the arteriotomy site for hemostasis. The patient was loaded with 600 mg of Plavix. He left the cathode maker cardiovascularly stable. FINDINGS: LEFT MAIN: 30% disease. LAD: Moderate size vessel with 70% disease in the proximal portion. Mid portion was 100% occluded. It gives off 1 major septal which supplies collaterals to the left circumflex. It also gives off 1 diagonal which is overall small in nature. LEFT CIRCUMFLEX: 100% occluded ostially. LVEDP: 4. IMPRESSION: 1. Non-ST elevation myocardial infarction. 2. Hypertensive urgency. 3. Coronary artery disease with history of coronary artery bypass graft x 2 (1/2 grafts are patent). RECOMMENDATIONS: 1. Mr. Fuchs underwent balloon angioplasty of his LAD into the septal finishing supervisor plastic sheets. I was unable to place a stent. 2. He will be recommended continued medical management with aspirin and Plavix and blood pressure control. 3. Ultimately, if he has further chest pain, then consideration could be made for repeat attempt at this from a femoral standpoint for better guide support. 4. Unfortunately, very few options are left to try to help intervene on his coronary anatomy. The only collaterals I see which are helping to the left circumflex are through the septal finishing supervisor plastic sheets and complex MEMBER SERVICE SPECIALIST through the septal finishing supervisor plastic sheets would then impede back on the left main. Ultimately, complex MEMBER SERVICE SPECIALIST probably would not have much benefit as the obtuse marginal appears to be occluded with no collaterals to it. 5. Overall, I think the biggest thing for him is blood pressure control, which has been better since being placed on nifedipine. 6. We will watch his kidney function in the morning. If stable in the morning, plan for discharge home. Thank you for allowing me to see Martín Fuchs. If there are any questions, please do not hesitate to call. Rad Rosales, DO Assessment and Plan - Assessment (1) ACS (acute coronary syndrome) Code(s): I24.9 - Acute ischemic heart disease, unspecified Status: Acute (2) Renal insufficiency Code(s): N28.9 - Disorder of kidney and ureter, unspecified Status: Acute (3) Lower extremity edema Code(s): R60.0 - Localized edema Status: Acute - Plan Mr. Fuchs is an 88-year-old male with a PMH of CAD s/p CABG 25yrs ago, HTN and CKD who presented to the ER for c/o chest pain and bilateral lower extremity edema x3 wks. he had chest pain that was substernal, moderate worse with exertion., Troponins were 0.03, 0.60, 1.07. Cardiology was consulted. Non-STEMI Coronary artery disease status post CABG 25 years ago Cardiology consulted. Patient is currently on aspirin 81 mg, heparin drip. Cardiac catheterization on 06/12/2018 - S/p complex PCI to stent LAD, unsuccessful on 06/14/18. Continue metoprolol 50 mg p.o. twice daily Patient is currently on atorvastatin 10 mg p.o. will increase atorvastatin to 40 mg. Patient will likely need ARB. Holding ARB due to unknown status of patient's baseline creatinine. Acute kidney injury Possible chronic kidney disease stage III Avoid nephrotoxins. Will avoid REX inhibitor or ARB for now. Creatinine 1.97 --> 2.08 today. Hypertension -BP was in the 170s. Nephrology started Nifedipine 60mg Qday. -BP this morning was 157 systolic. Full code. Heparin drip. Patient wants to explore evaluation of the tertiary center as unsuccessful complex PCI DC TO HOME TODAY FOLLOW UP WITH DR ROSALES AND PCP RX WRITTEN AVOID NEPHROTOXIC AGENTS Code Status: FULL CODE Discussed Condition With: RN AND PT AND FAMILY Discharge Planning: DC TO HOME TODAY
--- NOTE | 2018-06-15 10:27 | P.DS ---
Date of admission: 06/11/18 22:41 Primary care physician: Edis Dial DO Attending physician on discharge: Jamal Mosquera Anticipated date of discharge: 06/15/18 Brief History from admission: This is an 88-year-old male with a PMH of CAD s/p CABG 25yrs ago, HTN and CKD who presented to the ER for c/o chest pain and bilateral lower extremity edema x3 wks. Notes chest pain is substernal, moderate, 6/10, worse w/ exertion/ ambulation, symptoms have gotten progressively worse over the last 1wk. Now w/ bilateral lower extremity edema. Follows w/ Dr. Montes De Oca as outpatient, no recent changes to medications. Also notes h/o CKD, baseline creatinine unknown but reports being told it is elevated, has upcoming appt w/ Theology Professor on . On arrival, BP 189/78, HR 59, O2 sat 98% on RA, Afebrile. CBC unremarkable. INR 1.1. Creatinine 2.03, no previous labs for comparison. BNP 247. Troponin 0 0.03 per CXR with patchy parenchymal opacities medial right midlung zone, possible airspace disease, cardiomegaly. S/p Lasix in ER. Currently chest pain free. Dr. Persaud consulted, plan for cath in am. Currently on Heparin gtt. Patient update on day of discharge: This is an 88-year-old male with a PMH of CAD s/p CABG 25yrs ago, HTN and CKD who presented to the ER for c/o chest pain and bilateral lower extremity edema x3 wks. Notes chest pain is substernal, moderate, 6/10, worse w/ exertion/ ambulation, symptoms have gotten progressively worse over the last 1wk. Now w/ bilateral lower extremity edema. Follows w/ Dr. Montes De Oca as outpatient, no recent changes to medications. Also notes h/o CKD, baseline creatinine unknown but reports being told it is elevated, has upcoming appt w/ Theology Professor on . On arrival, BP 189/78, HR 59, O2 sat 98% on RA, Afebrile. CBC unremarkable. INR 1.1. Creatinine 2.03, no previous labs for comparison. BNP 247. Troponin 0 0.03 per CXR with patchy parenchymal opacities medial right midlung zone, possible airspace disease, cardiomegaly. S/p Lasix in ER. Currently chest pain free. Dr. Persaud consulted, plan for cath in am. Currently on Heparin gtt. 12-3 Follow-up for non-STEMI. Patient is currently doing well. He denies any chest pain, shortness of breath, fever or chills. 12-4 Follow-up for non-STEMI, hypertension, likely CKD. Patient is currently doing well. Denies any chest pain, shortness of breath, fever or chills. He ambulated in the room and did not have any further chest pain. 12-5 Follow-up for non-STEMI, hypertension, likely CKD. The patient was seen today after PCI. Patient is disappointed is no stent placed and wants to explore further eval in tertiary center Denies any chest pain, shortness of breath, fever or chills. No palpitations. No nausea or vomiting. Was not eating after the procedure. However says he is not hungry. 12-6 has been cleared by CARDIOLOGY FOR DISCHARGE DC TO HOME TODAY DENIES ANY SOB, OR CHEST PAIN AT THIS TIME WANTS TO GO HOME DW RN AND PT AND FAMILY DS: Diagnosis - Discharge Diagnosis (1) ACS (acute coronary syndrome) Status: Acute (2) Renal insufficiency Status: Acute (3) Lower extremity edema Status: Chronic DS: Medications - Discharge Medications Prescriptions: aspirin [Aspir-81] 81 mg PO DAILY #30 tab atorvastatin 40 mg PO DAILY #30 tab clopidogrel [Plavix] 75 mg PO DAILY #30 tab metoprolol tartrate 50 mg PO BID #60 tab nifedipine 60 mg PO DAILY #30 tab DS: Summary Hospital Course: This is an 88-year-old male with a PMH of CAD s/p CABG 25yrs ago, HTN and CKD who presented to the ER for c/o chest pain and bilateral lower extremity edema x3 wks. Notes chest pain is substernal, moderate, 6/10, worse w/ exertion/ ambulation, symptoms have gotten progressively worse over the last 1wk. Now w/ bilateral lower extremity edema. Follows w/ Dr. Montes De Oca as outpatient, no recent changes to medications. Also notes h/o CKD, baseline creatinine unknown but reports being told it is elevated, has upcoming appt w/ Theology Professor on . On arrival, BP 189/78, HR 59, O2 sat 98% on RA, Afebrile. CBC unremarkable. INR 1.1. Creatinine 2.03, no previous labs for comparison. BNP 247. Troponin 0 0.03 per CXR with patchy parenchymal opacities medial right midlung zone, possible airspace disease, cardiomegaly. S/p Lasix in ER. Currently chest pain free. Dr. Persaud consulted, plan for cath in am. Currently on Heparin gtt. 12-3 Follow-up for non-STEMI. Patient is currently doing well. He denies any chest pain, shortness of breath, fever or chills. 12-4 Follow-up for non-STEMI, hypertension, likely CKD. Patient is currently doing well. Denies any chest pain, shortness of breath, fever or chills. He ambulated in the room and did not have any further chest pain. 12-5 Follow-up for non-STEMI, hypertension, likely CKD. The patient was seen today after PCI. Patient is disappointed is no stent placed and wants to explore further eval in tertiary center Denies any chest pain, shortness of breath, fever or chills. No palpitations. No nausea or vomiting. Was not eating after the procedure. However says he is not hungry. 12-6 has been cleared by CARDIOLOGY FOR DISCHARGE DC TO HOME TODAY DENIES ANY SOB, OR CHEST PAIN AT THIS TIME WANTS TO GO HOME DW RN AND PT AND FAMILY - Time Spent with Patient Total time spent providing and/or coordinating discharge services: Greater than 30 minutes Exam Vital signs: Vital Signs 06/14/18 11:00 06/14/18 12:00 06/14/18 13:00 Temperature 97.8 F Pulse Rate 53 L 54 L 64 Respiratory Rate 18 Blood Pressure 158/68 H Pulse Oximetry 96 06/14/18 14:00 06/14/18 15:00 06/14/18 17:23 Temperature 97.8 F Pulse Rate 62 77 Respiratory Rate 18 Blood Pressure 163/72 H 170/79 H Pulse Oximetry 94 L 06/14/18 18:00 06/14/18 18:08 06/14/18 19:00 Temperature Pulse Rate 70 88 Respiratory Rate Blood Pressure 155/74 H Pulse Oximetry 06/14/18 20:00 06/14/18 21:00 06/14/18 22:00 Temperature 97.6 F Pulse Rate 116 H 82 82 Respiratory Rate 18 Blood Pressure 125/59 L Pulse Oximetry 97 06/14/18 23:00 06/15/18 00:00 06/15/18 01:00 Temperature 97.6 F Pulse Rate 63 86 64 Respiratory Rate 18 16 Blood Pressure 130/59 L Pulse Oximetry 97 06/15/18 02:00 06/15/18 03:00 06/15/18 04:00 Temperature 97.8 F Pulse Rate 120 H 61 64 Respiratory Rate 18 16 Blood Pressure 130/60 Pulse Oximetry 97 06/15/18 05:00 06/15/18 07:00 06/15/18 08:00 Temperature Pulse Rate 64 72 104 H Respiratory Rate Blood Pressure Pulse Oximetry 06/15/18 09:00 06/15/18 09:22 06/15/18 09:29 Temperature 97.9 F Pulse Rate 82 81 Respiratory Rate 17 Blood Pressure 165/69 H Pulse Oximetry 97 96 Intake & Output 06/14/18 06/15/18 06/15/18 18:59 06:59 18:59 Intake Total 640 / 640 240 / 240 240 / 240 Output Total 600 / 600 0 / 0 300 / 300 Balance 40 / 40 240 / 240 -60 / -60 Weight 55 kg Intake: IV 10 / 10 Heparin/NS PF Inj 1,000 ML @ 0 10 / 10 mls/hr .ROUTE .[facility] Rx#: [id number] Oral 480 / 480 240 / 240 240 / 240 Anesthesia Amount 150 / 150 Output: Urine 600 / 600 300 / 300 Stool 0 / 0 Other: # Voids 3 3 Date of Last Bowel Movement 06/15/18 # Bowel Movements 1 Narrative: GENERAL: Very pleasant 88-year-old male, appearing younger than the stated age, alert, oriented x3, NAD. SKIN: Warm and dry. HEAD: Normocephalic. EYES: No scleral icterus. No injection or drainage. NECK: Supple, trachea midline. No JVD or lymphadenopathy. CARDIOVASCULAR: Regular rate and rhythm without murmurs, gallops, or rubs. RESPIRATORY: Breath sounds equal bilaterally. No accessory muscle use. GASTROINTESTINAL: Abdomen soft, non-tender, nondistended. MUSCULOSKELETAL: No cyanosis. No lower ext edema. Right wrist with hematoma. Right femoral no hematoma, no ecchymosis. BACK: Nontender without obvious deformity. No CVA tenderness. Results Procedures completed during hospitalization: Cath 06/12/2018 1. Non-ST elevation myocardial infarction. 2. Coronary artery disease with a history of coronary artery bypass graft x 2 (1/2 grafts patent). 3. Accelerated hypertension. 4. Compensated diastolic heart failure. --- 06/14/2018 PROCEDURE: Left heart catheterization, coronary angiogram, moderate sedation 60 minutes, balloon angioplasty of LAD into the 1st septal. PREOPERATIVE DIAGNOSES: [id number] myocardial infarction, coronary artery disease with a history of coronary artery bypass graft x 2 (1/2 grafts patent). POSTPROCEDURE DIAGNOSES: Hypertensive urgency, [id number] myocardial infarction status post balloon angioplasty of LAD into 1st septal clinical administrative coordinator. MEDICATIONS: Versed 0.5 mg, fentanyl 25 mcg, verapamil 2.5 mg, nitroglycerine 200 mcg, heparin 4000 units, Plavix 600 mg. CONTRAST USED: 55 mL. FLUOROSCOPY: 19.9 minutes. MODERATE SEDATION: 60 minutes. FRAILTY SCORE: 5. ESTIMATED BLOOD LOSS: 10 mL. PROCEDURAL SUMMARY: Martín Fuchs is a pleasant 88-year-old male who sees my partner, Dr. Montes De Oca, in the office and presented due to unstable angina. He was found to have an elevated troponin and previously underwent cardiac catheterization on 06/12/2018. Due to his elevated troponin and complex coronary artery disease, I felt that the best option would be to attempt PCI of the LAD into the 1st septal which does supply collaterals to the left circumflex. This area is obviously viable and less likely ischemic as on echocardiogram there still appears to be in normal wall motion. Risks, benefits, and alternatives were explained to him and he consented as such. He was brought to the lab and prepped in the usual sterile fashion. The right radial artery was accessed using modified Seldinger technique and placement of a 5/6 English slender sheath. This was easily aspirated and flushed. An EBU 3.5 guide was engaged in the left main. Heparin was given as an anticoagulant. A BMW wire was advanced into the distal septal clinical administrative coordinator. A compliant balloon (2 x 12) was used to predilate the lesion. At that time, I attempted to place an [place] drug-eluting stent (2 x 15), but was unable to. The wire was lost and so wire was exchanged out for a [place] wire. Once again, I was unable to place the stent. Lastly, a [place] was then advanced, and I was still unable to place the stent. As there is disease of the left main, which is overall short, I was unable to use a GuideLiner or have any other support. At this time, I felt that further attempts at intervention may cause more problems and so a final angiogram was done showing no disruption of the coronary artery disease. The patient was without chest pain and hemodynamically stable. Guide was removed. Radial band was placed over the arteriotomy site for hemostasis. The patient was loaded with 600 mg of Plavix. He left the production laborer cardiovascularly stable. FINDINGS: LEFT MAIN: 30% disease. LAD: Moderate size vessel with 70% disease in the proximal portion. Mid portion was 100% occluded. It gives off 1 major septal which supplies collaterals to the left circumflex. It also gives off 1 diagonal which is overall small in nature. LEFT CIRCUMFLEX: 100% occluded ostially. LVEDP: 4. IMPRESSION: 1. Non-ST elevation myocardial infarction. 2. Hypertensive urgency. 3. Coronary artery disease with history of coronary artery bypass graft x 2 (1/2 grafts are patent). RECOMMENDATIONS: 1. Mr. Fuchs underwent balloon angioplasty of his LAD into the septal clinical administrative coordinator. I was unable to place a stent. 2. He will be recommended continued medical management with aspirin and Plavix and blood pressure control. 3. Ultimately, if he has further chest pain, then consideration could be made for repeat attempt at this from a femoral standpoint for better guide support. 4. Unfortunately, very few options are left to try to help intervene on his coronary anatomy. The only collaterals I see which are helping to the left circumflex are through the septal clinical administrative coordinator and complex SHIP PROPELLER FINISHER through the septal clinical administrative coordinator would then impede back on the left main. Ultimately, complex SHIP PROPELLER FINISHER probably would not have much benefit as the obtuse marginal appears to be occluded with no collaterals to it. 5. Overall, I think the biggest thing for him is blood pressure control, which has been better since being placed on nifedipine. 6. We will watch his kidney function in the morning. If stable in the morning, plan for discharge home. Thank you for allowing me to see Martín Fuchs. If there are any questions, please do not hesitate to call. Rad Persaud DO Completed studies during hospitalization: Laboratory Results WBC 5.6 th/mm3 (4.0-11.0) 06/15/18 04:58 RBC 3.94 mil/mm3 (4.50-5.90) L 06/15/18 04:58 Hgb 12.9 gm/dL (13.0-17.0) L 06/15/18 04:58 Hct 37.4 % (39.0-51.0) L 06/15/18 04:58 MCV 95.0 fL (80.0-100.0) 06/15/18 04:58 MCH 32.8 pg (27.0-34.0) 06/15/18 04:58 MCHC 34.6 % (32.0-36.0) 06/15/18 04:58 RDW 13.0 % (11.6-17.2) 06/15/18 04:58 Plt Count 142 th/mm3 (150-450) L 06/15/18 04:58 MPV 9.4 fL (7.0-11.0) 06/15/18 04:58 Prelim Diff (Auto) Slide review pending 06/12/18 03:49 Neut % (Auto) 57.9 % (16.0-70.0) 06/13/18 03:57 Lymph % (Auto) 26.8 % (9.0-44.0) 06/13/18 03:57 Cloud % (Auto) 8.8 % (0.0-8.0) H 06/13/18 03:57 Eos % (Auto) 6.1 % (0.0-4.0) H 06/13/18 03:57 Baso % (Auto) 0.4 % (0.0-2.0) 06/13/18 03:57 Neut # (Auto) 4.0 th/mm3 (1.8-7.7) 06/13/18 03:57 Lymph # (Auto) 1.8 th/mm3 (1.0-4.8) 06/13/18 03:57 Cloud # (Auto) 0.6 th/mm3 (0.0-0.9) 06/13/18 03:57 Eos # (Auto) 0.4 th/mm3 (0.0-0.4) 06/13/18 03:57 Baso # (Auto) 0.0 th/mm3 (0.0-0.2) 06/13/18 03:57 WBC Differential . 06/13/18 03:57 Diff Scan Auto diff confirmed 06/12/18 03:49 Differential Comment Auto diff final 06/13/18 03:57 Platelet Estimate Low (Normal) L 06/12/18 03:49 Platelet Morphology Normal (Normal) 06/12/18 03:49 PT 11.4 sec (9.8-11.6) 06/12/18 21:45 INR 1.1 Ratio 06/12/18 21:45 APTT 58.9 sec (23.4-31.7) H 06/14/18 08:31 Sodium 144 meq/L (136-145) 06/15/18 04:58 Potassium 3.6 meq/L (3.5-5.1) 06/15/18 04:58 Chloride 111 meq/L (98-107) H 06/15/18 04:58 Carbon Dioxide 22.5 meq/L (21.0-32.0) 06/15/18 04:58 Anion Gap 11 meq/L (5-15) 06/15/18 04:58 BUN 32 mg/dL (7-18) H 06/15/18 04:58 Creatinine 1.90 mg/dL (0.60-1.30) H 06/15/18 04:58 Estimated GFR 34 mL/min (>89) L 06/15/18 04:58 Random Glucose 88 mg/dL (74-106) 06/15/18 04:58 Calcium 8.3 mg/dL (8.5-10.1) L 06/15/18 04:58 Total Bilirubin 0.4 mg/dL (0.2-1.0) 06/12/18 03:49 AST 24 U/L (15-37) 06/12/18 03:49 ALT 18 U/L (12-78) 06/12/18 03:49 Alkaline Phosphatase 64 U/L (45-117) 06/12/18 03:49 Troponin I 1.07 ng/mL (0.02-0.05) H* 06/12/18 03:49 B-Natriuretic Peptide 247 pg/mL (0-100) H 06/11/18 20:35 Total Protein 7.2 g/dL (6.4-8.2) D 06/12/18 03:49 Albumin 3.6 g/dL (3.4-5.0) 06/12/18 03:49 Urine Color Straw (Yellw/Straw) 06/12/18 18:45 Urine Clarity Clear (Clear) 06/12/18 18:45 Urine pH 7.0 (5.0-8.5) 12 18:45 Ur Specific Butler 1.016 (1.002-1.035) 06/12/18 18:45 Urine Protein Negative mg/dL (Neg-Trace) 06/12/18 18:45 Urine Glucose (UA) Negative mg/dL (Negative) 06/12/18 18:45 Urine Ketones Negative mg/dL (Negative) 06/12/18 18:45 Urine Occult Blood Small (Negative) H 06/12/18 18:45 Urine Nitrate Negative (Negative) 06/12/18 18:45 Urine Bilirubin Negative (Negative) 06/12/18 18:45 Urine Urobilinogen Less than 2 mg/dL (Less than 2) 06/12/18 18:45 Ur Leukocyte Esterase Negative (Negative) 06/12/18 18:45 Urine RBC Less than 1 /hpf (0-3) 06/12/18 18:45 Urine WBC Less than 1 /hpf (0-5) 06/12/18 18:45 Urine Mucus Few /lpf (Occasional) H 06/12/18 18:45 Ur Microscopic Review Not Reportable 06/12/18 18:45 Impressions Chest X-Ray 06/11/18 20:33 CONCLUSION: 1. Mild patchy parenchymal opacities in the medial right midlung zone. Cannot exclude developing airspace disease in the appropriate clinical setting. 2. Cardiomegaly. Abdomen/Bladder Ultrasound 06/12/18 00:00 CONCLUSION: 1. Bilateral renal cysts. 2. Irregular wall thickening within the urinary bladder. Cystitis and neoplastic process should be excluded. Labs on day of discharge: Labs from last 24 hours 06/15/18 06/15/18 04:58 04:58 WBC 5.6 RBC 3.94 L Hgb 12.9 L Hct 37.4 L MCV 95.0 MCH 32.8 MCHC 34.6 RDW 13.0 Plt Count 142 L MPV 9.4 Sodium 144 Potassium 3.6 Chloride 111 H Carbon Dioxide 22.5 Anion Gap 11 BUN 32 H Creatinine 1.90 H Estimated GFR 34 L Random Glucose 88 Calcium 8.3 L - Impressions ITS Impressions Chest X-Ray 06/11/18 20:33 CONCLUSION: 1. Mild patchy parenchymal opacities in the medial right midlung zone. Cannot exclude developing airspace disease in the appropriate clinical setting. 2. Cardiomegaly. Abdomen/Bladder Ultrasound 06/12/18 00:00 CONCLUSION: 1. Bilateral renal cysts. 2. Irregular wall thickening within the urinary bladder. Cystitis and neoplastic process should be excluded. Discharge Plan - Discharge Disposition Patient Disposition: 01 Discharge Home - Discharge Condition Condition: Good - Discharge Order Discharge Orders: Discharge Order (Routine); Ordered 06/15/18 Ordered By: Jamal Mosquera - Discharge Details Anticipated Discharge Date: 06/15/18 Discharge Comment: dc to home today - Physicians Team Primary Care Provider: Edis Dial Attending Provider: Jamal Mosquera Other Providers: Rad Persaud DO ; Macy Weathers MD
--- NOTE | 2018-06-15 10:27 | P.PNNP ---
Subjective Interval history: Patient is alert, no chest pain or SOB. Physical Exam Vital signs: Vital Signs 06/14/18 11:00 06/14/18 12:00 06/14/18 13:00 Temperature 97.8 F Pulse Rate 53 L 54 L 64 Respiratory Rate 18 Blood Pressure 158/68 H Pulse Oximetry 96 06/14/18 14:00 06/14/18 15:00 06/14/18 17:23 Temperature 97.8 F Pulse Rate 62 77 Respiratory Rate 18 Blood Pressure 163/72 H 170/79 H Pulse Oximetry 94 L 06/14/18 18:00 06/14/18 18:08 06/14/18 19:00 Temperature Pulse Rate 70 88 Respiratory Rate Blood Pressure 155/74 H Pulse Oximetry 06/14/18 20:00 06/14/18 21:00 06/14/18 22:00 Temperature 97.6 F Pulse Rate 116 H 82 82 Respiratory Rate 18 Blood Pressure 125/59 L Pulse Oximetry 97 06/14/18 23:00 06/15/18 00:00 06/15/18 01:00 Temperature 97.6 F Pulse Rate 63 86 64 Respiratory Rate 18 16 Blood Pressure 130/59 L Pulse Oximetry 97 06/15/18 02:00 06/15/18 03:00 06/15/18 04:00 Temperature 97.8 F Pulse Rate 120 H 61 64 Respiratory Rate 18 16 Blood Pressure 130/60 Pulse Oximetry 97 06/15/18 05:00 06/15/18 07:00 06/15/18 08:00 Temperature Pulse Rate 64 72 104 H Respiratory Rate Blood Pressure Pulse Oximetry 06/15/18 09:00 06/15/18 09:22 06/15/18 09:29 Temperature 97.9 F Pulse Rate 82 81 Respiratory Rate 17 Blood Pressure 165/69 H Pulse Oximetry 97 96 Intake & Output 06/14/18 06/15/18 06/15/18 18:59 06:59 18:59 Intake Total 640 / 640 240 / 240 240 / 240 Output Total 600 / 600 0 / 0 300 / 300 Balance 40 / 40 240 / 240 -60 / -60 Weight 55 kg Intake: IV 10 / 10 Heparin/NS PF Inj 1,000 ML @ 0 10 / 10 mls/hr .ROUTE .[facility] Rx#: [id number] Oral 480 / 480 240 / 240 240 / 240 Anesthesia Amount 150 / 150 Output: Urine 600 / 600 300 / 300 Stool 0 / 0 Other: # Voids 3 3 Date of Last Bowel Movement 06/15/18 # Bowel Movements 1 Narrative: GENERAL: Very pleasant 88-year-old male, appearing younger than the stated age, alert, oriented x3, NAD. SKIN: Warm and dry. HEAD: Normocephalic. EYES: No scleral icterus. No injection or drainage. NECK: Supple, trachea midline. No JVD or lymphadenopathy. CARDIOVASCULAR: Regular rate and rhythm without murmurs, gallops, or rubs. RESPIRATORY: Breath sounds equal bilaterally. No accessory muscle use. GASTROINTESTINAL: Abdomen soft, non-tender, nondistended. MUSCULOSKELETAL: No cyanosis. No lower ext edema. Right wrist with hematoma. Right femoral no hematoma, no ecchymosis. BACK: Nontender without obvious deformity. No CVA tenderness. Assessment and Plan - Assessment (1) Hypertension Code(s): I10 - Essential (primary) hypertension Status: Acute Qualifiers: Hypertension type: essential hypertension Qualified Code(s): I10 - Essential (primary) hypertension (2) Chronic kidney disease (CKD) Code(s): N18.9 - Chronic kidney disease, unspecified Status: Acute (3) ACS (acute coronary syndrome) Code(s): I24.9 - Acute ischemic heart disease, unspecified Status: Acute (4) Lower extremity edema Code(s): R60.0 - Localized edema Status: Chronic - Plan Patient with chronic kidney disease and Hypertension, Has IHD and post CABG, Post Cardiac Cath done yesterday, results noted. Need better BP control. On Metoprolol, and started on Nifedipine. BP is better today. Creatinine is almost same, now 1.9 Encourage oral fluids, follow the urine out put and BMP. Cardiology follow up noted. Renal U/S showing thickening of bladder, need to see urology, for D/C today, need to follow as with me and Urology as out patient. Patient and explained.
[2018-06-15 11:18] VITALS: BP 161/74; PULSE 64; TEMP 97.6; O2SAT 98
--- NOTE | 2018-06-15 22:22 | P.PNCA ---
Subjective Interval history: No events overnight No chest pain Medications and Allergies Allergies Allergy/AdvReac Type Severity Reaction Status Date / Time No Known Allergies Allergy Verified 06/11/18 20:23 Home Medications Medication Instructions Recorded Confirmed Type cholecalciferol (vitamin D3) 2,000 unit PO DAILY 06/11/18 06/11/18 History [Vitamin D3] Physical Exam Vital signs: Vital Signs 06/14/18 23:00 06/15/18 00:00 06/15/18 01:00 Temperature 97.6 F Pulse Rate 63 86 64 Respiratory Rate 18 16 Blood Pressure 130/59 L Pulse Oximetry 97 06/15/18 02:00 06/15/18 03:00 06/15/18 04:00 Temperature 97.8 F Pulse Rate 120 H 61 64 Respiratory Rate 18 16 Blood Pressure 130/60 Pulse Oximetry 97 06/15/18 05:00 06/15/18 07:00 06/15/18 08:00 Temperature Pulse Rate 64 72 104 H Respiratory Rate Blood Pressure Pulse Oximetry Intake & Output 06/15/18 06/15/18 06/16/18 06:59 18:59 06:59 Intake Total 240 / 240 240 / 240 Output Total 0 / 0 300 / 300 Balance 240 / 240 -60 / -60 Weight 55 kg Intake: Oral 240 / 240 240 / 240 Output: Urine 300 / 300 Stool 0 / 0 Other: # Voids 3 Date of Last Bowel Movement 06/15/18 # Bowel Movements 1 Narrative: GENERAL: Very pleasant 88-year-old male, appearing younger than the stated age, alert, oriented x3, NAD. SKIN: Warm and dry. HEAD: Normocephalic. EYES: No scleral icterus. No injection or drainage. NECK: Supple, trachea midline. No JVD or lymphadenopathy. CARDIOVASCULAR: Regular rate and rhythm without murmurs, gallops, or rubs. RESPIRATORY: Breath sounds equal bilaterally. No accessory muscle use. GASTROINTESTINAL: Abdomen soft, non-tender, nondistended. MUSCULOSKELETAL: No cyanosis. No lower ext edema. Right wrist with hematoma. Right femoral no hematoma, no ecchymosis. BACK: Nontender without obvious deformity. No CVA tenderness. Results 06/15/18 04:58 06/15/18 04:58 Coagulation 06/14/18 06/14/18 Range/Units 01:39 08:31 APTT 51.7 H D 58.9 H (23.4-31.7) sec CBC 06/14/18 06/15/18 Range/Units 01:39 04:58 WBC 6.2 5.6 (4.0-11.0) th/mm3 RBC 3.95 L 3.94 L (4.50-5.90) mil/mm3 Hgb 13.0 12.9 L (13.0-17.0) gm/dL Hct 37.3 L 37.4 L (39.0-51.0) % Plt Count 144 L 142 L (150-450) th/mm3 Comprehensive Metabolic Panel 06/14/18 06/15/18 Range/Units 01:39 04:58 Sodium 142 144 (136-145) meq/L Potassium 3.5 3.6 (3.5-5.1) meq/L Chloride 108 H 111 H (98-107) meq/L Carbon Dioxide 26.6 22.5 (21.0-32.0) meq/L BUN 36 H 32 H (7-18) mg/dL Creatinine 1.99 H 1.90 H (0.60-1.30) mg/dL Calcium 8.2 L 8.3 L (8.5-10.1) mg/dL Intake and Output 06/15/18 06/15/18 06/15/18 06:59 14:59 22:59 Intake Total 240 / 240 240 / 240 Output Total 0 / 0 300 / 300 Balance 240 / 240 -60 / -60 Intake: Oral 240 / 240 240 / 240 Output: Urine 300 / 300 Stool 0 / 0 Other: # Voids 3 Date of Last Bowel Movement 06/15/18 # Bowel Movements 1 Weight 55 kg Assessment and Plan - Assessment (1) NSTEMI (non-ST elevated myocardial infarction) Code(s): I21.4 - Non-ST elevation (NSTEMI) myocardial infarction Status: Acute (2) Renal insufficiency Code(s): N28.9 - Disorder of kidney and ureter, unspecified Status: Acute (3) Lower extremity edema Code(s): R60.0 - Localized edema Status: Chronic (4) Hypertension Code(s): I10 - Essential (primary) hypertension Status: Acute (5) Chronic kidney disease (CKD) Code(s): N18.9 - Chronic kidney disease, unspecified Status: Acute (6) CAD (coronary artery disease) Code(s): I25.10 - Atherosclerotic heart disease of [place] coronary artery without angina pectoris Status: Acute - Plan 1) NSTEMI/CAD POBA of LAD into septal Added Plavix Continue medical management/blood pressure control Further angina, then will consider repeat attempt at stenting from femoral standpoint 2) Creatinine stable this morning 3) Blood pressure control Nifedipine added, blood pressure better 4) Discussed with patient and his Discussed with son over the phone this morning Discussed with [id number] last night 5) Cardiovascularly stable for discharge Will see in the office for follow up (4) Hypertension Qualifiers: Hypertension type: essential hypertension Qualified Code(s): I10 - Essential (primary) hypertension
== END 2018-06-15 11:59 | disposition home or self-care (01) ==
LOC: NEPE 20:21 → NEDA 22:41 → HCPC 06-12 01:03
PROVIDERS: ADMIT Hospitalist; ATTEND Hospitalist